=== PATIENT | female | born 1985 | race Two or more races ===

== ENCOUNTER 2016-07-11 18:18 | Emergency (ER) | payer OTHER, SELFPAY ==
[2016-07-11] MEDS ORDERED: METOCLOPRAMIDE INJ 10MG/2ML VIAL (J2765) As Ordered ONE (20:08)
[2016-07-11] MEDS ORDERED: dexameTHASONE 4 MG/ML 1ML VIAL (J1100) As Ordered ONE (20:09)
[2016-07-11] MEDS ORDERED: diphenhydrAMINE INJ 50MG/ML VIAL (J1200) As Ordered ONE (20:09)
[2016-07-11 20:20] LABS: BASO % 0.3 % (0.0-1.0); EOS # 0.3 K/mm3 (0.0-0.50); EOS % 2.4 % (0.0-3.0); LARGE UNSTAINED CELL # 0.2 K/mm3 (0.0-0.4); LARGE UNSTAINED CELL % 1.8 % (0.0-4.0); LYMPH % 29.1 % (24.0-44.0); MEAN CORPUSCULAR HEMOGLOBIN 31.2 pg (27.0-33.0); MEAN CORPUSCULAR HGB CONC 34.2 g/dl (32.0-36.5); MEAN CORPUSCULAR VOLUME 91.4 fl (80.0-96.0); MONO # 0.6 K/mm3 (0.0-0.8); MONO % 4.3 % (0.0-5.0); NEUTROPHILS # 8.5 K/mm3 (1.8-7.7); NEUTROPHILS % 62.2 % (36.0-66.0); PLATELET COUNT, AUTOMATED 248 k/mm3 (150-450); RED CELL DISTRIBUTION WIDTH 12.7 % (11.5-14.5); WHITE BLOOD COUNT 13.7 K/mm3 (4.0-10.0)
[2016-07-11 20:54] LABS: ERYTHROCYTE SEDIMENTATION RATE 5 mm/hr (0-20)
--- NOTE | 2016-07-11 21:00 | REPUSA ---
HISTORY: Rule out bleed COMPARISON: None. TECHNIQUE: Multiple thin-section contiguous helically-acquired, axially-displayed computed tomographic images of the brain were obtained from the posterior fossa continued through the supratentorial structures, with images reviewed at brain, intermediate, and bone windows. FINDINGS: No acute intracranial hemorrhage or evidence of acute transcortical ischemia. No suspicious intra or extra axial fluid collection, middling shift, or evidence of hydrocephalus. The orbits and sella demonstrate no suspicious abnormality. Visualized paranasal sinuses, mastoid air cells, and middle ear cavities are patent. Osseous structures and extra cranial soft tissues demonstrate no abnormalities. IMPRESSION: No acute intracranial abnormality. Thank you for your kind referral of this patient.
[2016-07-11 21:10] LABS: ANION GAP 7 MEQ/L (8-16); BLOOD UREA NITROGEN 8 MG/DL (7-18); CALCIUM LEVEL 8.6 MG/DL (8.5-10.1); CARBON DIOXIDE LEVEL 29 MEQ/L (21-32); CHLORIDE LEVEL 108 MEQ/L (98-107); CREATININE FOR GFR 0.57 MG/DL (0.55-1.02); GLOMERULAR FILTRATION RATE > 60.0 (>60); GLUCOSE, FASTING 87 MG/DL (70-105); SODIUM LEVEL 144 MEQ/L (136-145)
--- NOTE | 2016-07-11 22:24 | EDDOCDS ---
Physician Documentation [facility] Name: Karen Hendricks Age: 31 yrs Sex: Female : 1985 Arrival Date: 07/11/2016 Time: 18:18 Bed I8 / 16 Private MD: ILYA RUIZ Disposition: 07/11/16 21:39 Discharged to Home/Self Care. Impression: Headache. - Condition is Stable. - Discharge Instructions: General Headache Without Cause. - Medication Reconciliation, Local Pharmacy Hours form. - Follow up: ILYA RUIZ; When: 1 - 2 days; Reason: Recheck today's complaints, Continuance of care. - Problem is new. - Symptoms have improved. - Notes: PLEASE FOLLOW UP WITH YOUR DOCTOR IN 1-2 DAYS, RETURN TO THE ER IF THE SYMPTOMS WORSEN OR BECOME CONCERNING Historical: - Allergies: Penicillins; - Home Meds: 1. citalopram 25 mg oral tab 1 tab once daily (Last dose: 07/09/2016) 2. Depakote ER 250 mg Oral Tb24 1 tabs once daily 3. buspirone 10 mg Oral tab 1 tab 2 times per day 4. hydrochlorothiazide 25 mg Oral tab 1 tab once daily 5. Vitamin D-3 with Aloe 120-1,000-10 mg-unit-mg oral tab twice a day 6. Tension Headache Reliever 30-325 mg oral tab 2 tabs every 4 hours (Last dose: 07/11/2016 15:00) 7. ibuprofen 800 mg Oral tab (Last dose: 07/11/2016 15:00) - PMHx: Bipolar disorder; Depression; - PSHx: Tubal ligation; - Social history: Smoking status: Patient uses tobacco products, light tobacco smoker. No barriers to communication noted, The patient speaks fluent [place], Speaks appropriately for age. - Family history: Not pertinent. - : The pt / caregiver states he / she is not on anticoagulants. Home medication list is obtained from the patient. - Exposure Risk Screening:: None identified. 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 0 in. (152.40 cm) (R); Pain 6/10; 22:21 BP 120 / 78; Pulse 82; Resp 18; Temp 98.4(O); Pulse Ox 98% on R/A; Pain 0/10; jmb 18:20 Body Mass Index 36.13 (83.91 kg, 152.40 cm) gr2 MDM: 19:59 IV Saline Lock ordered. ck7 19:59 Dexamethasone 8 mg IV at bolus once ordered. ck7 19:59 Metoclopramide 10 mg IV at 40 mg/hr once over 15 mins ordered. ck7 19:59 diphenhydrAMINE 25 mg IVP once ordered. ck7 19:59 NS 0.9% 1000 ml IV at bolus once ordered. ck7 20:01 CBC with Diff Ordered. EDMS 20:01 MED Profile Ordered. EDMS 20:01 ESR Ordered. EDMS 20:01 CRP Ordered. EDMS 20:01 CT Head Without Contrast Ordered. EDMS 20:51 Financial registration complete. zo 20:52 [facility] Payment Agreement was scanned into [employer] and attached to record. zo 21:17 CBC with Diff Reviewed. ck7 21:17 MED Profile Reviewed. ck7 21:17 CRP Reviewed. ck7 21:17 ESR Reviewed. ck7 21:17 CT Head Without Contrast Reviewed. ck7 Administered Medications: 20:22 Drug: Dexamethasone 8 mg [dexamethasone 4 mg/mL injection solution] Route: IV; Rate: mb9 bolus; Site: left antecubital; 20:22 Drug: Metoclopramide 10 mg [metoclopramide 5 mg/mL injection solution] Route: IV; Rate: mb9 40 mg/hr; Infused Over: 15 mins; Site: left antecubital; 20:22 Drug: diphenhydrAMINE 25 mg [diphenhydramine 50 mg/mL injection solution (0.5 mL)] mb9 Route: IVP; Site: left antecubital; 20:23 Drug: NS 0.9% 1000 ml [sodium chloride 0.9 % intravenous solution] Route: IV; Rate: mb9 bolus; Site: left antecubital; Signatures: Dispatcher [employer] EDMS Ish Lundberg Hannah, RN RN hs1 Stefan Martinez RPA-C RPA-Cck7 Stalin Medina,RN RN jmb Jessica Saleh RN RN kc3 Cuong Young RN mb9 The chart was reviewed and I authenticate all verbal orders and agree with the evaluation and treatment provided.Attachments: 20:52 [facility] Payment Agreement zo MTDD
--- NOTE | 2016-07-11 22:24 | EDDOCDS ---
Nurse's Notes [facility] Name: Karen Hendricks Age: 31 yrs Sex: Female : 1985 Arrival Date: 07/11/2016 Time: 18:18 Bed I8 / 16 Private MD: ILYA RUIZ Diagnosis: Headache Presentation: 07/11 18:23 Presenting complaint: Patient states: headache for past week. Patient states went to hs1 urgent care ([facility]) on Saturday and was told to come here. Patient also stated she saw regular physician and that if pain not better to come to ER for evaluation. This patient has no additional risk factors. Adult Sepsis Screening: The patient does not have new or worsening altered mentation. Patient's respiratory rate is less than 22. Systolic blood pressure is greater than 100. Patient has a qSOFA score of 0- Negative Sepsis Screen. Suicide/Homicide risk assessment- the patient denies having any suicidal and/or homicidal ideations and does not present with any other emotional, behavioral or mental health complaints. Status: Patient is not a director of volunteer services or dependent. Transition of care: patient was not received from another setting of care. 18:23 Acuity: VERN Level 4 hs1 18:23 Method Of Arrival: Walkin/Carried/Asstd hs1 Triage Assessment: 18:27 Headache History: This headache is more severe than any previous headaches the patient hs1 has experienced. General: Appears in no apparent distress, Behavior is cooperative. Pain: Pain currently is 7 out of 10 on a pain scale. Pain began gradually Also complains of nausea, photophobia. HIV screening NA for this visit Offered previously. Neurological: Reports blurred vision when pain is worse . 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 citalopram 25 mg oral tab 1 tab once daily (Last dose: 07/09/2016) 2. Depakote ER 250 mg Oral Tb24 1 tabs once daily 3. buspirone 10 mg Oral tab 1 tab 2 times per day 4. hydrochlorothiazide 25 mg Oral tab 1 tab once daily 5. Vitamin D-3 with Aloe 120-1,000-10 mg-unit-mg oral tab twice a day 6. Tension Headache Reliever 30-325 mg oral tab 2 tabs every 4 hours (Last dose: 07/11/2016 15:00) 7. ibuprofen 800 mg Oral tab (Last dose: 07/11/2016 15:00) - PMHx: Bipolar disorder; Depression; - PSHx: Tubal ligation; - Social history: Smoking status: Patient uses tobacco products, light tobacco smoker. No barriers to communication noted, The patient speaks fluent Kyrgyz, Speaks appropriately for age. - Family history: Not pertinent. - : The pt / caregiver states he / she is not on anticoagulants. Home medication list is obtained from the patient. - Exposure Risk Screening:: None identified. Screenin:14 Screening information is obtained from the patient. Fall risk: No risks identified. kc3 Assistance ADL's: requires no assistance with activities of daily living. Abuse/DV Screen: The patient / caregiver reports he/she is: not in a situation that causes fear, pain or injury. Nutritional screening: No deficits noted. home support is adequate. 20:15 Advance Directives: Currently, there is no health care proxy. kc3 Assessment: 20:13 General: Appears in no apparent distress, uncomfortable, Behavior is appropriate for kc3 age, cooperative. Pain: Location: head. Neurological: Level of Consciousness is awake, alert, obeys commands, Oriented to person, place, time, Reports headache photophobia. Respiratory: Airway is patent Respiratory effort is even, unlabored. Derm: Skin is pink, warm & dry. 21:02 General: Appears in no apparent distress, Behavior is cooperative. Pain: Location: mb9 headache Pain currently is 4 out of 10 on a pain scale. Respiratory: Airway is patent Respiratory effort is even, unlabored. 22:21 General: Patient instructed on discharge instructions. Patient asked if there were any b questions regarding discharge, patient stated no. IV discontinued per hospital policy. Patient signed discharge instructions. Patient discharged in stable condition. . Vital Signs: 18:20 BP 126 / 81; Pulse 98; Resp 18 S; Temp 98.5(O); Pulse Ox 100% on R/A; Weight 83.91 kg gr2 (R); Height 5 ft. 0 in. (152.40 cm) (R); Pain 6/10; 22:21 BP 120 / 78; Pulse 82; Resp 18; Temp 98.4(O); Pulse Ox 98% on R/A; Pain 0/10; jmb 18:20 Body Mass Index 36.13 (83.91 kg, 152.40 cm) gr2 Vitals: 18:20 Log In Time: July 11, 2016 at 18:20. gr2 ED Course: 18:19 Patient visited by Tania Marcelo. gr2 18:19 Patient moved to Waiting gr2 18:20 ILYA RUIZ is Private Physician. gr2 18:21 Patient visited by Tania Marcelo. gr2 18:21 Patient moved to Pre RCE gr2 18:24 Triage Initiated hs1 19:08 Patient moved to Triage 1 ttb 19:38 Stefan Martinez RPA-C is PHCP. ck7 19:38 Charles Chaudhry MD is Attending Physician. ck7 19:38 Patient visited by Stefan Martinez RPA-C. ck7 20:01 Kelsey Lopez, ANTONY is Primary Nurse. kc3 20:01 Alexandrea Kirk,RN is Primary Nurse. kc3 20:01 Patient moved to I8 / 16 kc3 20:11 Patient visited by Stefan Martinez RPA-C. ck7 20:13 CRP Sent. kc3 20:13 ESR Sent. kc3 20:13 MED Profile Sent. kc3 20:13 CBC with Diff Sent. kc3 20:14 The patient / caregiver is instructed regarding the plan of care and ED course. kc3 20:14 Inserted saline lock: 20 gauge in left antecubital area and blood collected. The kc3 patient tolerated the procedure well. 20:16 Patient visited by Jessica Saleh RN. kc3 20:48 Patient visited by Stefan Martinez RPA-C. ck7 20:52 [facility] Payment Agreement was scanned into [email or web address] and attached to record. zo 21:15 CT Head Without Contrast Returned. EDMS 21:27 Patient visited by Stefan Martinez RPA-C. ck7 21:29 Primary Nurse role handed off by Kelsey Lopez, RN pc 21:39 ILYA RUIZ is Referral Physician. ck7 22:21 Discontinued lock intact, bleeding controlled, pressure dressing applied, No jmb redness/swelling at site. No procedures done that require assistance. Administered Medications: 20:22 Drug: Dexamethasone 8 mg [dexamethasone 4 mg/mL injection solution] Route: IV; Rate: mb9 bolus; Site: left antecubital; 20:22 Drug: Metoclopramide 10 mg [metoclopramide 5 mg/mL injection solution] Route: IV; Rate: mb9 40 mg/hr; Infused Over: 15 mins; Site: left antecubital; 20:22 Drug: diphenhydrAMINE 25 mg [diphenhydramine 50 mg/mL injection solution (0.5 mL)] mb9 Route: IVP; Site: left antecubital; 20:23 Drug: NS 0.9% 1000 ml [sodium chloride 0.9 % intravenous solution] Route: IV; Rate: mb9 bolus; Site: left antecubital; Order Results: Lab Order: CBC with Diff; SPEC'M 07/11/16 20:11 Test: WHITE BLOOD COUNT; Value: 13.7; Range: 4.0-10.0; Abnormal: Above high normal; Units: K/mm3; Status: F Test: RED BLOOD COUNT; Value: 4.85; Range: 4.00-5.40; Units: M/mm3; Status: F Test: HEMOGLOBIN; Value: 15.1; Range: 12.0-16.0; Units: g/dl; Status: F Test: HEMATOCRIT; Value: 44.3; Range: 36.0-47.0; Units: %; Status: F Test: MEAN CORPUSCULAR VOLUME; Value: 91.4; Range: 80.0-96.0; Units: fl; Status: F Test: MEAN CORPUSCULAR HEMOGLOBIN; Value: 31.2; Range: 27.0-33.0; Units: pg; Status: F Test: MEAN CORPUSCULAR HGB CONC; Value: 34.2; Range: 32.0-36.5; Units: g/dl; Status: F Test: RED CELL DISTRIBUTION WIDTH; Value: 12.7; Range: 11.5-14.5; Units: %; Status: F Test: PLATELET COUNT, AUTOMATED; Value: 248; Range: 150-450; Units: k/mm3; Status: F Test: NEUTROPHILS %; Value: 62.2; Range: 36.0-66.0; Units: %; Status: F Test: LYMPH %; Value: 29.1; Range: 24.0-44.0; Units: %; Status: F Test: MONO %; Value: 4.3; Range: 0.0-5.0; Units: %; Status: F Test: EOS %; Value: 2.4; Range: 0.0-3.0; Units: %; Status: F Test: BASO %; Value: 0.3; Range: 0.0-1.0; Units: %; Status: F Test: LARGE UNSTAINED CELL %; Value: 1.8; Range: 0.0-4.0; Units: %; Status: F Test: NEUTROPHILS #; Value: 8.5; Range: 1.8-7.7; Abnormal: Above high normal; Units: K/mm3; Status: F Test: LYMPH #; Value: 4.0; Range: 1.5-6.5; Units: K/mm3; Status: F Test: MONO #; Value: 0.6; Range: 0.0-0.8; Units: K/mm3; Status: F Test: EOS #; Value: 0.3; Range: 0.0-0.50; Units: K/mm3; Status: F Test: BASO #; Value: 0.0; Range: 0.0-0.2; Units: K/mm3; Status: F Test: LARGE UNSTAINED CELL #; Value: 0.2; Range: 0.0-0.4; Units: K/mm3; Status: F Lab Order: [facility]; [facility] 07/11/16 20:46 Test: GLUCOSE, FASTING; Value: 87; Range: 70-105; Units: MG/DL; Status: F Test: BLOOD UREA NITROGEN; Value: 8; Range: 7-18; Units: MG/DL; Status: F Test: CREATININE FOR GFR; Value: 0.57; Range: 0.55-1.02; Units: MG/DL; Status: F Test: GLOMERULAR FILTRATION RATE; Value: > 60.0; Range: >60; Status: F Test: SODIUM LEVEL; Value: 144; Range: 136-145; Units: MEQ/L; Status: F Test: POTASSIUM SERUM; Value: 4.0; Range: 3.5-5.1; Units: MEQ/L; Status: F Test: CHLORIDE LEVEL; Value: 108; Range: 98-107; Abnormal: Above high normal; Units: MEQ/L; Status: F Test: CARBON DIOXIDE LEVEL; Value: 29; Range: 21-32; Units: MEQ/L; Status: F Test: ANION GAP; Value: 7; Range: 8-16; Abnormal: Below low normal; Units: MEQ/L; Status: F Test: CALCIUM LEVEL; Value: 8.6; Range: 8.5-10.1; Units: MG/DL; Status: F Test Note: ; Units are mL/min/1.73 m2 Chronic Kidney Disease Staging per NKF: Stage I & II GFR >=60 Normal to Mildly Decreased Stage III GFR 30-59 Moderately Decreased Stage IV GFR 15-29 Severely Decreased Stage V GFR <15 Very Little GFR Left ESRD GFR <15 on [employer] Lab Order: ESR; SPEC'M 07/11/16 20:11 Test: ERYTHROCYTE SEDIMENTATION RATE; Value: 5; Range: 0-20; Units: mm/hr; Status: F Lab Order: CRP; SPEC'M 07/11/16 20:46 Test: C REACTIVE PROTEIN QUANTITATIV; Value: 1.01; Range: 0.00-0.30; Abnormal: Above high normal; Units: MG/DL; Status: F Radiology Order: CT Head Without Contrast Test: CT Head Without Contrast REASON FOR EXAMINATION: HEADACHE, R/O BLEED; ; HISTORY: Rule out bleed; COMPARISON: None.; TECHNIQUE:; Multiple thin-section contiguous helically-acquired, axially-displayed computed tomographic images of; the brain were obtained from the posterior fossa continued through the supratentorial; structures, with images reviewed at brain, intermediate, and bone windows.; FINDINGS:; No acute intracranial hemorrhage or evidence of acute transcortical ischemia. No suspicious intra or; extra axial fluid collection, middling shift, or evidence of hydrocephalus.; The orbits and sella demonstrate no suspicious abnormality.; Visualized paranasal sinuses, mastoid air cells, and middle ear cavities are patent.; Osseous structures and extra cranial soft tissues demonstrate no abnormalities.; IMPRESSION:; No acute intracranial abnormality.; Thank you for your kind referral of this patient.; ; Outcome: 21:39 Discharge ordered by Provider. ck7 22:21 Discharge Assessment: Patient awake, alert and oriented x 3. No cognitive and/or jmb functional deficits noted. Patient verbalized understanding of disposition instructions. Patient awake and alert. obeys commands, Oriented to person, place and time. Patient verbalized understanding of disposition instructions. Patient has no functional deficits. patient administered narcotics - no. The following High Risk Discharge criteria are identified: None. Discharged to home ambulatory. Condition: stable Condition: improved. Discharge instructions given to patient, Instructed on discharge instructions, follow up and referral plans. Demonstrated understanding of instructions, Pt was receptive of discharge instructions/ teaching. No special radiology studies were completed. Property sent home with patient. 22:24 Patient left the ED. jmb Signatures: Dispatcher [employer] EDMS Pablito Luna MD MD pc Olin, Zoeann zo Sherrill, Hannah, RN RN hs1 Stefan Martinez, RPA-C RPA-Cck7 Sonya Mcconnell, RN RN ttb Tania Marcelo gr2 Stalin Medina,RN RN heribertob Cuong Young,RN RN mb9 Jessica Saleh,RN RN kc3 ALEX
--- NOTE | 2016-07-13 23:25 | EDDOCDS ---
Physician Documentation [facility] Name: Karen Hendricks Age: 31 yrs Sex: Female : 1985 Arrival Date: 07/11/2016 Time: 18:18 Bed I8 / 16 Private MD: ILYA RUIZ Disposition: 07/11/16 21:39 Discharged to Home/Self Care. Impression: Headache. - Condition is Stable. - Discharge Instructions: General Headache Without Cause. - Medication Reconciliation, Local Pharmacy Hours form. - Follow up: ILYA RUIZ; When: 1 - 2 days; Reason: Recheck today's complaints, Continuance of care. - Problem is new. - Symptoms have improved. - Notes: PLEASE FOLLOW UP WITH YOUR DOCTOR IN 1-2 DAYS, RETURN TO THE ER IF THE SYMPTOMS WORSEN OR BECOME CONCERNING Historical: - Allergies: Penicillins; - Home Meds: 1. citalopram 25 mg oral tab 1 tab once daily (Last dose: 07/09/2016) 2. Depakote ER 250 mg Oral Tb24 1 tabs once daily 3. buspirone 10 mg Oral tab 1 tab 2 times per day 4. hydrochlorothiazide 25 mg Oral tab 1 tab once daily 5. Vitamin D-3 with Aloe 120-1,000-10 mg-unit-mg oral tab twice a day 6. Tension Headache Reliever 30-325 mg oral tab 2 tabs every 4 hours (Last dose: 07/11/2016 15:00) 7. ibuprofen 800 mg Oral tab (Last dose: 07/11/2016 15:00) - PMHx: Bipolar disorder; Depression; - PSHx: Tubal ligation; - Social history: Smoking status: Patient uses tobacco products, light tobacco smoker. No barriers to communication noted, The patient speaks fluent Kazakh, Speaks appropriately for age. - Family history: Not pertinent. - : The pt / caregiver states he / she is not on anticoagulants. Home medication list is obtained from the patient. - Exposure Risk Screening:: None identified. 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 0 in. (152.40 cm) (R); Pain 6/10; 22:21 BP 120 / 78; Pulse 82; Resp 18; Temp 98.4(O); Pulse Ox 98% on R/A; Pain 0/10; jmb 18:20 Body Mass Index 36.13 (83.91 kg, 152.40 cm) gr2 MDM: 19:59 IV Saline Lock ordered. ck7 19:59 Dexamethasone 8 mg IV at bolus once ordered. ck7 19:59 Metoclopramide 10 mg IV at 40 mg/hr once over 15 mins ordered. ck7 19:59 diphenhydrAMINE 25 mg IVP once ordered. ck7 19:59 NS 0.9% 1000 ml IV at bolus once ordered. ck7 20:01 CBC with Diff Ordered. EDMS 20:01 MED Profile Ordered. EDMS 20:01 ESR Ordered. EDMS 20:01 CRP Ordered. EDMS 20:01 CT Head Without Contrast Ordered. EDMS 20:51 Financial registration complete. zo 20:52 [facility] [place] Agreement was scanned into [employer] and attached to record. zo 21:17 CBC with Diff Reviewed. ck7 21:17 MED Profile Reviewed. ck7 21:17 CRP Reviewed. ck7 21:17 ESR Reviewed. ck7 21:17 CT Head Without Contrast Reviewed. ck7 07/12 10:11 T-Sheet-- Draft Copy was scanned into [employer] and attached to record. gb Administered Medications: 07/11 20:22 Drug: Dexamethasone 8 mg [dexamethasone 4 mg/mL injection solution] Route: IV; Rate: mb9 bolus; Site: left antecubital; 20:22 Drug: Metoclopramide 10 mg [metoclopramide 5 mg/mL injection solution] Route: IV; Rate: mb9 40 mg/hr; Infused Over: 15 mins; Site: left antecubital; 20:22 Drug: diphenhydrAMINE 25 mg [diphenhydramine 50 mg/mL injection solution (0.5 mL)] mb9 Route: IVP; Site: left antecubital; 20:23 Drug: NS 0.9% 1000 ml [sodium chloride 0.9 % intravenous solution] Route: IV; Rate: mb9 bolus; Site: left antecubital; Signatures: Dispatcher [employer] EDMS Dia Garber Reg Reg gb Ish Lunbderg Hannah, RN RN hs1 Stefan Martinez, RPA-C RPA-Cck7 Stalin Medina RN RN jmb Jessica Saleh RN RN kc3 Cuong Young RN mb9 The chart was reviewed and I authenticate all verbal orders and agree with the evaluation and treatment provided.Attachments: 20:52 [facility] Payment Agreement zo 07/12 10:11 T-Sheet-- Draft Copy gb Chart Complete MTDD
--- NOTE | 2016-07-13 23:25 | EDDOCDS ---
Nurse's Notes [facility] Name: Karen Hendricks Age: 31 yrs Sex: Female : 1985 Arrival Date: 07/11/2016 Time: 18:18 Bed I8 / 16 Private MD: ILYA RUIZ Diagnosis: Headache Presentation: 07/11 18:23 Presenting complaint: Patient states: headache for past week. Patient states went to hs1 urgent care ([facility]) on Saturday and was told to come here. Patient also stated she saw regular physician and that if pain not better to come to ER for evaluation. This patient has no additional risk factors. Adult Sepsis Screening: The patient does not have new or worsening altered mentation. Patient's respiratory rate is less than 22. Systolic blood pressure is greater than 100. Patient has a qSOFA score of 0- Negative Sepsis Screen. Suicide/Homicide risk assessment- the patient denies having any suicidal and/or homicidal ideations and does not present with any other emotional, behavioral or mental health complaints. Status: Patient is not a guest service agent or dependent. Transition of care: patient was not received from another setting of care. 18:23 Acuity: VERN Level 4 hs1 18:23 Method Of Arrival: Walkin/Carried/Asstd hs1 Triage Assessment: 18:27 Headache History: This headache is more severe than any previous headaches the patient hs1 has experienced. General: Appears in no apparent distress, Behavior is cooperative. Pain: Pain currently is 7 out of 10 on a pain scale. Pain began gradually Also complains of nausea, photophobia. HIV screening NA for this visit Offered previously. Neurological: Reports blurred vision when pain is worse . 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 citalopram 25 mg oral tab 1 tab once daily (Last dose: 07/09/2016) 2. Depakote ER 250 mg Oral Tb24 1 tabs once daily 3. buspirone 10 mg Oral tab 1 tab 2 times per day 4. hydrochlorothiazide 25 mg Oral tab 1 tab once daily 5. Vitamin D-3 with Aloe 120-1,000-10 mg-unit-mg oral tab twice a day 6. Tension Headache Reliever 30-325 mg oral tab 2 tabs every 4 hours (Last dose: 07/11/2016 15:00) 7. ibuprofen 800 mg Oral tab (Last dose: 07/11/2016 15:00) - PMHx: Bipolar disorder; Depression; - PSHx: Tubal ligation; - Social history: Smoking status: Patient uses tobacco products, light tobacco smoker. No barriers to communication noted, The patient speaks fluent Mohawk, Speaks appropriately for age. - Family history: Not pertinent. - : The pt / caregiver states he / she is not on anticoagulants. Home medication list is obtained from the patient. - Exposure Risk Screening:: None identified. Screenin:14 Screening information is obtained from the patient. Fall risk: No risks identified. kc3 Assistance ADL's: requires no assistance with activities of daily living. Abuse/DV Screen: The patient / caregiver reports he/she is: not in a situation that causes fear, pain or injury. Nutritional screening: No deficits noted. home support is adequate. 20:15 Advance Directives: Currently, there is no health care proxy. kc3 Assessment: 20:13 General: Appears in no apparent distress, uncomfortable, Behavior is appropriate for kc3 age, cooperative. Pain: Location: head. Neurological: Level of Consciousness is awake, alert, obeys commands, Oriented to person, place, time, Reports headache photophobia. Respiratory: Airway is patent Respiratory effort is even, unlabored. Derm: Skin is pink, warm & dry. 21:02 General: Appears in no apparent distress, Behavior is cooperative. Pain: Location: mb9 headache Pain currently is 4 out of 10 on a pain scale. Respiratory: Airway is patent Respiratory effort is even, unlabored. 22:21 General: Patient instructed on discharge instructions. Patient asked if there were any b questions regarding discharge, patient stated no. IV discontinued per hospital policy. Patient signed discharge instructions. Patient discharged in stable condition. . Vital Signs: 18:20 BP 126 / 81; Pulse 98; Resp 18 S; Temp 98.5(O); Pulse Ox 100% on R/A; Weight 83.91 kg gr2 (R); Height 5 ft. 0 in. (152.40 cm) (R); Pain 6/10; 22:21 BP 120 / 78; Pulse 82; Resp 18; Temp 98.4(O); Pulse Ox 98% on R/A; Pain 0/10; jmb 18:20 Body Mass Index 36.13 (83.91 kg, 152.40 cm) gr2 Vitals: 18:20 Log In Time: July 11, 2016 at 18:20. gr2 ED Course: 18:19 Patient visited by Tania Marcelo. gr2 18:19 Patient moved to Waiting gr2 18:20 ILYA RUIZ is Private Physician. gr2 18:21 Patient visited by Tania Marcelo. gr2 18:21 Patient moved to Pre RCE gr2 18:24 Triage Initiated hs1 19:08 Patient moved to Triage 1 ttb 19:38 Stefan Martinez RPA-C is PHCP. ck7 19:38 Charles Chaudhry MD is Attending Physician. ck7 19:38 Patient visited by Stefan Martinez RPA-C. ck7 20:01 Kelsey Lopez, RN is Primary Nurse. kc3 20:01 Alexandrea Kirk,RN is Primary Nurse. kc3 20:01 Patient moved to I8 / 16 kc3 20:11 Patient visited by Stefan Martinez RPA-C. ck7 20:13 CRP Sent. kc3 20:13 ESR Sent. kc3 20:13 MED Profile Sent. kc3 20:13 CBC with Diff Sent. kc3 20:14 The patient / caregiver is instructed regarding the plan of care and ED course. kc3 20:14 Inserted saline lock: 20 gauge in left antecubital area and blood collected. The kc3 patient tolerated the procedure well. 20:16 Patient visited by Jessica Saleh,ANTONY. kc3 20:48 Patient visited by Stefan Martinez RPA-C. ck7 20:52 [facility] Payment Agreement was scanned into LUMOback and attached to record. zo 21:15 CT Head Without Contrast Returned. EDMS 21:27 Patient visited by Stefan Martinez RPA-C. ck7 21:29 Primary Nurse role handed off by Kelsey Lopez, RN pc 21:39 ILYA RUIZ is Referral Physician. ck7 22:21 Discontinued lock intact, bleeding controlled, pressure dressing applied, No jmb redness/swelling at site. No procedures done that require assistance. 07/12 10:11 T-Sheet-- Draft Copy was scanned into LUMOback and attached to record. gb Administered Medications: 07/11 20:22 Drug: Dexamethasone 8 mg [dexamethasone 4 mg/mL injection solution] Route: IV; Rate: mb9 bolus; Site: left antecubital; 20:22 Drug: Metoclopramide 10 mg [metoclopramide 5 mg/mL injection solution] Route: IV; Rate: mb9 40 mg/hr; Infused Over: 15 mins; Site: left antecubital; 20:22 Drug: diphenhydrAMINE 25 mg [diphenhydramine 50 mg/mL injection solution (0.5 mL)] mb9 Route: IVP; Site: left antecubital; 20:23 Drug: NS 0.9% 1000 ml [sodium chloride 0.9 % intravenous solution] Route: IV; Rate: mb9 bolus; Site: left antecubital; Order Results: Lab Order: CBC with Diff; SPEC'M 07/11/16 20:11 Test: WHITE BLOOD COUNT; Value: 13.7; Range: 4.0-10.0; Abnormal: Above high normal; Units: K/mm3; Status: F Test: RED BLOOD COUNT; Value: 4.85; Range: 4.00-5.40; Units: M/mm3; Status: F Test: HEMOGLOBIN; Value: 15.1; Range: 12.0-16.0; Units: g/dl; Status: F Test: HEMATOCRIT; Value: 44.3; Range: 36.0-47.0; Units: %; Status: F Test: MEAN CORPUSCULAR VOLUME; Value: 91.4; Range: 80.0-96.0; Units: fl; Status: F Test: MEAN CORPUSCULAR HEMOGLOBIN; Value: 31.2; Range: 27.0-33.0; Units: pg; Status: F Test: MEAN CORPUSCULAR HGB CONC; Value: 34.2; Range: 32.0-36.5; Units: g/dl; Status: F Test: RED CELL DISTRIBUTION WIDTH; Value: 12.7; Range: 11.5-14.5; Units: %; Status: F Test: PLATELET COUNT, AUTOMATED; Value: 248; Range: 150-450; Units: k/mm3; Status: F Test: NEUTROPHILS %; Value: 62.2; Range: 36.0-66.0; Units: %; Status: F Test: LYMPH %; Value: 29.1; Range: 24.0-44.0; Units: %; Status: F Test: MONO %; Value: 4.3; Range: 0.0-5.0; Units: %; Status: F Test: EOS %; Value: 2.4; Range: 0.0-3.0; Units: %; Status: F Test: BASO %; Value: 0.3; Range: 0.0-1.0; Units: %; Status: F Test: LARGE UNSTAINED CELL %; Value: 1.8; Range: 0.0-4.0; Units: %; Status: F Test: NEUTROPHILS #; Value: 8.5; Range: 1.8-7.7; Abnormal: Above high normal; Units: K/mm3; Status: F Test: LYMPH #; Value: 4.0; Range: 1.5-6.5; Units: K/mm3; Status: F Test: MONO #; Value: 0.6; Range: 0.0-0.8; Units: K/mm3; Status: F Test: EOS #; Value: 0.3; Range: 0.0-0.50; Units: K/mm3; Status: F Test: BASO #; Value: 0.0; Range: 0.0-0.2; Units: K/mm3; Status: F Test: LARGE UNSTAINED CELL #; Value: 0.2; Range: 0.0-0.4; Units: K/mm3; Status: F Lab Order: MED Profile; [facility]'M 07/11/16 20:46 Test: GLUCOSE, FASTING; Value: 87; Range: 70-105; Units: MG/DL; Status: F Test: BLOOD UREA NITROGEN; Value: 8; Range: 7-18; Units: MG/DL; Status: F Test: CREATININE FOR GFR; Value: 0.57; Range: 0.55-1.02; Units: MG/DL; Status: F Test: GLOMERULAR FILTRATION RATE; Value: > 60.0; Range: >60; Status: F Test: SODIUM LEVEL; Value: 144; Range: 136-145; Units: MEQ/L; Status: F Test: POTASSIUM SERUM; Value: 4.0; Range: 3.5-5.1; Units: MEQ/L; Status: F Test: CHLORIDE LEVEL; Value: 108; Range: 98-107; Abnormal: Above high normal; Units: MEQ/L; Status: F Test: CARBON DIOXIDE LEVEL; Value: 29; Range: 21-32; Units: MEQ/L; Status: F Test: ANION GAP; Value: 7; Range: 8-16; Abnormal: Below low normal; Units: MEQ/L; Status: F Test: CALCIUM LEVEL; Value: 8.6; Range: 8.5-10.1; Units: MG/DL; Status: F Test Note: ; Units are mL/min/1.73 m2 Chronic Kidney Disease Staging per NKF: Stage I & II GFR >=60 Normal to Mildly Decreased Stage III GFR 30-59 Moderately Decreased Stage IV GFR 15-29 Severely Decreased Stage V GFR <15 Very Little GFR Left ESRD GFR <15 on SAP 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 Lab Order: ESR; SPEC'M 07/11/16 20:11 Test: ERYTHROCYTE SEDIMENTATION RATE; Value: 5; Range: 0-20; Units: mm/hr; Status: F Lab Order: CRP; SPEC'M 07/11/16 20:46 Test: C REACTIVE PROTEIN QUANTITATIV; Value: 1.01; Range: 0.00-0.30; Abnormal: Above high normal; Units: MG/DL; Status: F Radiology Order: CT Head Without Contrast Test: CT Head Without Contrast REASON FOR EXAMINATION: HEADACHE, R/O BLEED; ; HISTORY: Rule out bleed; COMPARISON: None.; TECHNIQUE:; Multiple thin-section contiguous helically-acquired, axially-displayed computed tomographic images of; the brain were obtained from the posterior fossa continued through the supratentorial; structures, with images reviewed at brain, intermediate, and bone windows.; FINDINGS:; No acute intracranial hemorrhage or evidence of acute transcortical ischemia. No suspicious intra or; extra axial fluid collection, middling shift, or evidence of hydrocephalus.; The orbits and sella demonstrate no suspicious abnormality.; Visualized paranasal sinuses, mastoid air cells, and middle ear cavities are patent.; Osseous structures and extra cranial soft tissues demonstrate no abnormalities.; IMPRESSION:; No acute intracranial abnormality.; Thank you for your kind referral of this patient.; ; Outcome: 21:39 Discharge ordered by Provider. ck7 22:21 Discharge Assessment: Patient awake, alert and oriented x 3. No cognitive and/or jmb functional deficits noted. Patient verbalized understanding of disposition instructions. Patient awake and alert. obeys commands, Oriented to person, place and time. Patient verbalized understanding of disposition instructions. Patient has no functional deficits. patient administered narcotics - no. The following High Risk Discharge criteria are identified: None. Discharged to home ambulatory. Condition: stable Condition: improved. Discharge instructions given to patient, Instructed on discharge instructions, follow up and referral plans. Demonstrated understanding of instructions, Pt was receptive of discharge instructions/ teaching. No special radiology studies were completed. Property sent home with patient. 22:24 Patient left the ED. nuris Signatures: Dispatcher Med[employer] EDMS Pablito Luna MD MD pc Dia Garber, Reg Reg Ish Christensen Hannah, RN RN hs1 Stefan Martinez, RPA-C RPA-Cck7 Sonya Mcconnell, RN RN ttb Tania Marcelo gr2 Stalin MedinaRN RN heribertob Cuong Young,RN RN mb9 Jessica Saleh,RN RN kc3 Chart Complete MTDD
--- NOTE | 2016-07-13 23:25 | EDDOCDS ---
Physician Documentation [facility] Name: Karen Hendricks Age: 31 yrs Sex: Female : 1985 Arrival Date: 07/11/2016 Time: 18:18 Bed I8 / 16 Private MD: ILYA RUIZ Disposition: 07/11/16 21:39 Discharged to Home/Self Care. Impression: Headache. - Condition is Stable. - Discharge Instructions: General Headache Without Cause. - Medication Reconciliation, Local Pharmacy Hours form. - Follow up: ILYA RUIZ; When: 1 - 2 days; Reason: Recheck today's complaints, Continuance of care. - Problem is new. - Symptoms have improved. - Notes: PLEASE FOLLOW UP WITH YOUR DOCTOR IN 1-2 DAYS, RETURN TO THE ER IF THE SYMPTOMS WORSEN OR BECOME CONCERNING Historical: - Allergies: Penicillins; - Home Meds: 1. citalopram 25 mg oral tab 1 tab once daily (Last dose: 07/09/2016) 2. Depakote ER 250 mg Oral Tb24 1 tabs once daily 3. buspirone 10 mg Oral tab 1 tab 2 times per day 4. hydrochlorothiazide 25 mg Oral tab 1 tab once daily 5. Vitamin D-3 with Aloe 120-1,000-10 mg-unit-mg oral tab twice a day 6. Tension Headache Reliever 30-325 mg oral tab 2 tabs every 4 hours (Last dose: 07/11/2016 15:00) 7. ibuprofen 800 mg Oral tab (Last dose: 07/11/2016 15:00) - PMHx: Bipolar disorder; Depression; - PSHx: Tubal ligation; - Social history: Smoking status: Patient uses tobacco products, light tobacco smoker. No barriers to communication noted, The patient speaks fluent Romanian, Speaks appropriately for age. - Family history: Not pertinent. - : The pt / caregiver states he / she is not on anticoagulants. Home medication list is obtained from the patient. - Exposure Risk Screening:: None identified. 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 0 in. (152.40 cm) (R); Pain 6/10; 22:21 BP 120 / 78; Pulse 82; Resp 18; Temp 98.4(O); Pulse Ox 98% on R/A; Pain 0/10; jmb 18:20 Body Mass Index 36.13 (83.91 kg, 152.40 cm) gr2 MDM: 19:59 IV Saline Lock ordered. ck7 19:59 Dexamethasone 8 mg IV at bolus once ordered. ck7 19:59 Metoclopramide 10 mg IV at 40 mg/hr once over 15 mins ordered. ck7 19:59 diphenhydrAMINE 25 mg IVP once ordered. ck7 19:59 NS 0.9% 1000 ml IV at bolus once ordered. ck7 20:01 CBC with Diff Ordered. EDMS 20:01 MED Profile Ordered. EDMS 20:01 ESR Ordered. EDMS 20:01 CRP Ordered. EDMS 20:01 CT Head Without Contrast Ordered. EDMS 20:51 Financial registration complete. zo 20:52 [facility] Payment Agreement was scanned into [employer] and attached to record. zo 21:17 CBC with Diff Reviewed. ck7 21:17 MED Profile Reviewed. ck7 21:17 CRP Reviewed. ck7 21:17 ESR Reviewed. ck7 21:17 CT Head Without Contrast Reviewed. ck7 07/12 10:11 T-Sheet-- Draft Copy was scanned into [employer] and attached to record. gb Administered Medications: 07/11 20:22 Drug: Dexamethasone 8 mg [dexamethasone 4 mg/mL injection solution] Route: IV; Rate: mb9 bolus; Site: left antecubital; 20:22 Drug: Metoclopramide 10 mg [metoclopramide 5 mg/mL injection solution] Route: IV; Rate: mb9 40 mg/hr; Infused Over: 15 mins; Site: left antecubital; 20:22 Drug: diphenhydrAMINE 25 mg [diphenhydramine 50 mg/mL injection solution (0.5 mL)] mb9 Route: IVP; Site: left antecubital; 20:23 Drug: NS 0.9% 1000 ml [sodium chloride 0.9 % intravenous solution] Route: IV; Rate: mb9 bolus; Site: left antecubital; Signatures: Dispatcher MedHost EDMS Dia Garber Reg Reg gb Ish Lundberg Hannah, RN RN hs1 Stefan Martinez, RPA-C RPA-Cck7 Stalin Medina RN RN jmb Jessica Saleh RN RN kc3 Cuong Young RN mb9 The chart was reviewed and I authenticate all verbal orders and agree with the evaluation and treatment provided.Attachments: 20:52 [facility] Payment Agreement zo 07/12 10:11 T-Sheet-- Draft Copy gb Chart Complete MTDD
== END 2016-07-11 22:24 | disposition home or self-care (01) ==
LOC: M ED 18:18
DX: R51 Headache (principal); F31.9 Bipolar disorder, unspecified; Z79.899 Other long term (current) drug therapy; Z88.0 Allergy status to penicillin
CPT/HCPCS: 36415; 70450; 80048; 85025; 85652; 86140; 96374; 96375; 99284; J1100; J1200; J2765

== ENCOUNTER 2016-07-19 09:54 | Emergency (ER) | payer OTHER, SELFPAY ==
[2016-07-19] MEDS ORDERED: ONDANSETRON 4MG/2ML VIAL (J2405) As Ordered ONE (10:36)
[2016-07-19] MEDS ORDERED: MORPHINE 4 MG/ML 1ML SYRINGE As Ordered ONE (10:36)
[2016-07-19 10:39] LABS: BASO % 0.3 % (0.0-1.0); EOS # 0.2 K/mm3 (0.0-0.50); EOS % 2.6 % (0.0-3.0); LARGE UNSTAINED CELL # 0.1 K/mm3 (0.0-0.4); LARGE UNSTAINED CELL % 1.3 % (0.0-4.0); LYMPH # 1.3 K/mm3 (1.5-6.5); LYMPH % 12.9 % (24.0-44.0); MEAN CORPUSCULAR HEMOGLOBIN 30.8 pg (27.0-33.0); MEAN CORPUSCULAR HGB CONC 34.9 g/dl (32.0-36.5); MEAN CORPUSCULAR VOLUME 88.5 fl (80.0-96.0); MONO # 0.5 K/mm3 (0.0-0.8); MONO % 4.7 % (0.0-5.0); NEUTROPHILS # 7.7 K/mm3 (1.8-7.7); NEUTROPHILS % 78.2 % (36.0-66.0); PLATELET COUNT, AUTOMATED 231 k/mm3 (150-450); RED CELL DISTRIBUTION WIDTH 12.9 % (11.5-14.5); WHITE BLOOD COUNT 9.8 K/mm3 (4.0-10.0)
[2016-07-19 11:04] LABS: ANION GAP 8 MEQ/L (8-16); BLOOD UREA NITROGEN 10 MG/DL (7-18); CALCIUM LEVEL 8.7 MG/DL (8.5-10.1); CARBON DIOXIDE LEVEL 27 MEQ/L (21-32); CHLORIDE LEVEL 104 MEQ/L (98-107); CREATININE FOR GFR 0.68 MG/DL (0.55-1.02); GLOMERULAR FILTRATION RATE > 60.0 (>60); GLUCOSE, FASTING 91 MG/DL (70-105); POTASSIUM SERUM 3.2 MEQ/L (3.5-5.1); SODIUM LEVEL 139 MEQ/L (136-145)
--- NOTE | 2016-07-19 11:30 | REP ---
CT ABDOMEN AND PELVIS WITHOUT IV CONTRAST: CT abdomen and pelvis performed. No oral or IV contrast was administered. Sagittal and coronal reconstructions images are performed. Visualized lung bases are clear. Liver, spleen, adrenals and pancreas are unremarkable. Subcentimeter calcification in the upper pole of the right kidney is seen as well as a tiny subcentimeter calcification in the mid right renal collecting system. No hydroureteronephrosis is seen. No ureteral or bladder calculus is seen. There is no abdominal aortic aneurysm. There is no adenopathy. There is no free air or free fluid. There is no bowel thickening. The appendix is normal. There is no pelvic mass. The urinary bladder is not optimally distended and not optimally evaluated. There are no anterior abdominal wall defects. IMPRESSION: Two intrarenal subcentimeter calculi right kidney. No ureteral calculi bilaterally. No hydroureteronephrosis. No other acute abnormality detected. Signed by Hang Fuller MD 07/19/2016 01:22 P
--- NOTE | 2016-07-19 11:59 | EDDOCDS ---
Physician Documentation [facility] Name: Karen Hendricks Age: 31 yrs Sex: Female : 1985 Arrival Date: 07/19/2016 Time: 09:54 Bed I1 / M1 Private MD: LIYA RUIZ Disposition: 07/19/16 11:50 Discharged to Home/Self Care. Impression: Low back pain - left flank. - Condition is Stable. - Discharge Instructions: Back Pain, Adult. - Prescriptions for Robaxin 500 mg Oral Tablet - take 1 tablet by ORAL route every 6 hours As needed; 20 tablet. Ultram 50 mg Oral Tablet - take 1 tablet by ORAL route every 6 hours As needed MDD: 4 tabs; 20 tablet. - Medication Reconciliation, Local Pharmacy Hours form. - Follow up: ILYA RUIZ; When: As previously arranged; Reason: Recheck today's complaints, Continuance of care. - Problem is new. - Symptoms have improved. Historical: - Allergies: PENICILLINS; - Home Meds: 1. buspirone 10 mg Oral tab 1 tab 2 times per day 2. citalopram 25 mg Oral tab 1 tab once daily 3. Depakote ER 250 mg Oral Tb24 1 tabs once daily 4. hydrochlorothiazide 25 mg Oral tab 1 tab once daily 5. ibuprofen 800 mg Oral tab (Last dose: 07/19/2016 08:30) 6. Tension Headache Reliever 30-325 mg oral tab 2 tabs every 4 hours 7. Vitamin D-3 with Aloe 120-1,000-10 mg-unit-mg oral tab twice a day 8. Tylenol Oral 2 tabs alfie 8 hours (Last dose: 07/19/2016 07:00) - PMHx: Bipolar disorder; Depression; Kidney stones; - PSHx: Tubal ligation; - Social history: Smoking status: Patient states was never smoker of tobacco. No barriers to communication noted, The patient speaks fluent Maltese, Speaks appropriately for age. - Family history: Not pertinent. - : The pt / caregiver states he / she is not on anticoagulants. Home medication list is obtained from the patient. - Exposure Risk Screening:: None identified. 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 0 in. (152.40 cm) (R); Pain 9/10; 11:33 Pain 4/10; kr3 11:55 BP 118 / 76; Pulse 84; Resp 16; Temp 97.5; Pulse Ox 100% on R/A; kr3 09:56 Body Mass Index 36.33 (84.37 kg, 152.40 cm) ct3 MDM: 10:13 IV Saline Lock ordered. ar2 10:13 UCG by Nursing ordered. ar2 10:13 NS 0.9% 1000 ml IV at bolus once ordered. ar2 10:13 Ondansetron 4 mg IVP once ordered. ar2 10:13 morphine 4 mg IVP once ordered. ar2 10:14 CBC with Diff Ordered. EDMS 10:14 MED Profile Ordered. EDMS 10:14 UA Ordered. EDMS 10:14 Urine Culture Ordered. EDMS 10:45 CT ABD & PELVIS: No Contrast Ordered. EDMS 10:48 Financial registration complete. mm15 10:49 [facility] Payment Agreement was scanned into [employer] and attached to record. mm15 11:16 CBC with Diff Reviewed. ar2 11:16 MED Profile Reviewed. ar2 11:16 UA Reviewed. ar2 Point of Care Testing: Urine : 10:43 hCG Reading: Negative; Control Reading: Positive; jb5 Ranges: Administered Medications: 10:44 Drug: NS 0.9% 1000 ml Route: IV; Rate: bolus; Site: right antecubital; mk4 11:55 Follow up: BP 118 / 76; Pulse 84 bpm; Resp 16 bpm; Temp 97.5; Pulse Ox 100% RA; IV kr3 Status: Infusion discontinued; IV Intake: 700ml 10:44 Drug: Ondansetron 4 mg Route: IVP; Site: right antecubital; mk4 10:44 Drug: morphine 4 mg [morphine 4 mg/mL intravenous cartridge (1 mL)] Route: IVP; Site: mk4 right antecubital; 11:33 Follow up: Pain 4/10 Adult kr3 Signatures: Dispatcher MedHost EDMS Cathy Hansen RN RN kr3 Kelsey Lind RN RN Earle Colin PA-C PAVinay ar2 Usha Bhakta mm15 Iris Dwyer RN RN mk4 The chart was reviewed and I authenticate all verbal orders and agree with the evaluation and treatment provided.Attachments: 10:49 [facility] Payment Agreement mm15 MTDD
--- NOTE | 2016-07-19 11:59 | EDDOCDS ---
Nurse's Notes [facility] Name: Karen Hendricks Age: 31 yrs Sex: Female : 1985 Arrival Date: 07/19/2016 Time: 09:54 Bed I1 / M1 Private MD: ILYA RUIZ Diagnosis: Low back pain-left flank Presentation: 07/19 09:59 Presenting complaint: Patient states: Left sided flank pain. History of kidney stones. jo3 Passes them frequently. Out of [place]. Acute neurological deficits are not present. Mechanism of Injury: No Mechanism of Injury. Adult Sepsis Screening: The patient does not have new or worsening altered mentation. Patient's respiratory rate is less than 22. Systolic blood pressure is greater than 100. Patient has a qSOFA score of 0- Negative Sepsis Screen. Suicide/Homicide risk assessment- the patient denies having any suicidal and/or homicidal ideations and does not present with any other emotional, behavioral or mental health complaints. Status: Patient is not a claims service representative or dependent. Transition of care: patient was not received from another setting of care. 09:59 Acuity: VERN Level 3 jo3 09:59 Method Of Arrival: Walkin/Carried/Asstd jo3 Triage Assessment: 10:03 General: Appears uncomfortable, Behavior is appropriate for age, cooperative. Pain: jo3 Pain currently is 9 out of 10 on a pain scale. HIV screening NA for this visit Offered previously. Neurological: Level of Consciousness is awake, alert, Oriented to person, place, time. Respiratory: Airway is patent Respiratory effort is even, unlabored. Derm: Skin is pink, warm & dry. RN NICU: 10:03 LMP 07/02/2016 jo3 Historical: - Allergies: PENICILLINS; - Home Meds: 1. buspirone 10 mg Oral tab 1 tab 2 times per day 2. citalopram 25 mg Oral tab 1 tab once daily 3. Depakote ER 250 mg Oral Tb24 1 tabs once daily 4. hydrochlorothiazide 25 mg Oral tab 1 tab once daily 5. ibuprofen 800 mg Oral tab (Last dose: 07/19/2016 08:30) 6. Tension Headache Reliever 30-325 mg oral tab 2 tabs every 4 hours 7. Vitamin D-3 with Aloe 120-1,000-10 mg-unit-mg oral tab twice a day 8. Tylenol Oral 2 tabs alfie 8 hours (Last dose: 07/19/2016 07:00) - PMHx: Bipolar disorder; Depression; Kidney stones; - PSHx: Tubal ligation; - Social history: Smoking status: Patient states was never smoker of tobacco. No barriers to communication noted, The patient speaks fluent Gambian, Speaks appropriately for age. - Family history: Not pertinent. - : The pt / caregiver states he / she is not on anticoagulants. Home medication list is obtained from the patient. - Exposure Risk Screening:: None identified. Screenin:45 Screening information is obtained from the patient. Fall risk: No risks identified. mk4 Assistance ADL's: requires no assistance with activities of daily living. Abuse/DV Screen: The patient / caregiver reports he/she is: not in a situation that causes fear, pain or injury. Nutritional screening: No deficits noted. Advance Directives: Currently, there is no health care proxy. There is no active DNR order. There is no living will. There is no Power of Director [employer]. Advance directive information has not previously been placed in an [facility] medical record. Further advance directive information is declined. home support is adequate. Assessment: 10:45 General: Appears uncomfortable. Pain: Location: left lower quadrant. Neurological: mk4 Level of Consciousness is awake, alert. Respiratory: Airway is patent Respiratory effort is even, unlabored, Respiratory pattern is regular. Derm: Skin is intact, is healthy with good turgor, Skin is pink, warm & dry. Musculoskeletal: No deficits noted. 11:34 Reassessment: reports initially had some pain relief but now pain is 4/10 and kr3 increasing, provider notified. Vital Signs: 09:56 BP 126 / 82; Pulse 93; Resp 18; Temp 98.8(O); Pulse Ox 97% ; Weight 84.37 kg (R); ct3 Height 5 ft. 0 in. (152.40 cm) (R); Pain 9/10; 11:33 Pain 4/10; kr3 11:55 BP 118 / 76; Pulse 84; Resp 16; Temp 97.5; Pulse Ox 100% on R/A; kr3 09:56 Body Mass Index 36.33 (84.37 kg, 152.40 cm) ct3 Vitals: 09:56 Log In Time: July 19, 2016 at 09:53. ct3 ED Course: 09:55 Patient visited by Jaki Heck, DOROTEO. ct3 09:55 ILYA RUIZ is Private Physician. ct3 09:55 Patient moved to Waiting ct3 09:57 Patient moved to Pre RCE ct3 10:01 Triage Initiated jo3 10:04 Patient visited by Kelsey Lind RN. jo3 10:04 Patient moved to Triage 2 jo3 10:07 Earle Cornelius [facility]-C [facility]. ar2 10:07 Pablito Luna MD is Attending Physician. ar2 10:07 Patient visited by Earle Cornelius PA-C. ar2 10:21 Patient moved to I1 / M1 ck1 10:21 Urine Culture Sent. ck1 10:21 UA Sent. ck1 10:34 MED Profile Sent. mk4 10:34 CBC with Diff Sent. mk4 10:43 Patient visited by Iris Dwyer RN. mk4 10:43 Patient visited by Ayde Del Angel PCA. jb5 10:45 The patient / caregiver is instructed regarding the plan of care and ED course. mk4 10:45 Inserted saline lock: 20 gauge in right antecubital area and blood collected. mk4 10:49 [facility] [place] Agreement was scanned into [employer] and attached to record. mm15 11:15 Patient visited by Iris Dwyer RN. mk4 11:50 ILYA RUIZ is Referral Physician. ar2 11:55 CT ABD & PELVIS: No Contrast Returned. EDMS 11:57 Discontinued lock intact, bleeding controlled, pressure dressing applied, No kr3 redness/swelling at site. No procedures done that require assistance. Administered Medications: 10:44 Drug: NS 0.9% 1000 ml Route: IV; Rate: bolus; Site: right antecubital; mk4 11:55 Follow up: BP 118 / 76; Pulse 84 bpm; Resp 16 bpm; Temp 97.5; Pulse Ox 100% RA; IV kr3 Status: Infusion discontinued; IV Intake: 700ml 10:44 Drug: Ondansetron 4 mg Route: IVP; Site: right antecubital; mk4 10:44 Drug: morphine 4 mg [morphine 4 mg/mL intravenous cartridge (1 mL)] Route: IVP; Site: mk4 right antecubital; 11:33 Follow up: Pain 10 Adult kr3 Point of Care Testing: Urine : 10:43 hCG Reading: Negative; Control Reading: Positive; jb5 Ranges: Intake: 11:55 IV: 700.00ml; Total: 700.00ml. kr3 Order Results: Lab Order: CBC with Diff; MELINDA'Iris 07/19/16 10:32 Test: WHITE BLOOD COUNT; Value: 9.8; Range: 4.0-10.0; Units: K/mm3; Status: F Test: RED BLOOD COUNT; Value: 5.02; Range: 4.00-5.40; Units: M/mm3; Status: F Test: HEMOGLOBIN; Value: 15.5; Range: 12.0-16.0; Units: g/dl; Status: F Test: HEMATOCRIT; Value: 44.4; Range: 36.0-47.0; Units: %; Status: F Test: MEAN CORPUSCULAR VOLUME; Value: 88.5; Range: 80.0-96.0; Units: fl; Status: F Test: MEAN CORPUSCULAR HEMOGLOBIN; Value: 30.8; Range: 27.0-33.0; Units: pg; Status: F Test: MEAN CORPUSCULAR HGB CONC; Value: 34.9; Range: 32.0-36.5; Units: g/dl; Status: F Test: RED CELL DISTRIBUTION WIDTH; Value: 12.9; Range: 11.5-14.5; Units: %; Status: F Test: PLATELET COUNT, AUTOMATED; Value: 231; Range: 150-450; Units: k/mm3; Status: F Test: NEUTROPHILS %; Value: 78.2; Range: 36.0-66.0; Abnormal: Above high normal; Units: %; Status: F Test: LYMPH %; Value: 12.9; Range: 24.0-44.0; Abnormal: Below low normal; Units: %; Status: F Test: MONO %; Value: 4.7; Range: 0.0-5.0; Units: %; Status: F Test: EOS %; Value: 2.6; Range: 0.0-3.0; Units: %; Status: F Test: BASO %; Value: 0.3; Range: 0.0-1.0; Units: %; Status: F Test: LARGE UNSTAINED CELL %; Value: 1.3; Range: 0.0-4.0; Units: %; Status: F Test: NEUTROPHILS #; Value: 7.7; Range: 1.8-7.7; Units: K/mm3; Status: F Test: LYMPH #; Value: 1.3; Range: 1.5-6.5; Abnormal: Below low normal; Units: K/mm3; Status: F Test: MONO #; Value: 0.5; Range: 0.0-0.8; Units: K/mm3; Status: F Test: EOS #; Value: 0.2; Range: 0.0-0.50; Units: K/mm3; Status: F Test: BASO #; Value: 0.0; Range: 0.0-0.2; Units: K/mm3; Status: F Test: LARGE UNSTAINED CELL #; Value: 0.1; Range: 0.0-0.4; Units: K/mm3; Status: F Lab Order: MED Profile; [facility]' 07/19/16 10:32 Test: GLUCOSE, FASTING; Value: 91; Range: 70-105; Units: MG/DL; Status: F Test: BLOOD UREA NITROGEN; Value: 10; Range: 7-18; Units: MG/DL; Status: F Test: CREATININE FOR GFR; Value: 0.68; Range: 0.55-1.02; Units: MG/DL; Status: F Test: GLOMERULAR FILTRATION RATE; Value: > 60.0; Range: >60; Status: F Test: SODIUM LEVEL; Value: 139; Range: 136-145; Units: MEQ/L; Status: F Test: POTASSIUM SERUM; Value: 3.2; Range: 3.5-5.1; Abnormal: Below low normal; Units: MEQ/L; Status: F Test: CHLORIDE LEVEL; Value: 104; Range: 98-107; Units: MEQ/L; Status: F Test: CARBON DIOXIDE LEVEL; Value: 27; Range: 21-32; Units: MEQ/L; Status: F Test: ANION GAP; Value: 8; Range: 8-16; Units: MEQ/L; Status: F Test: CALCIUM LEVEL; Value: 8.7; Range: 8.5-10.1; Units: MG/DL; Status: F Test Note: ; Units are mL/min/1.73 m2 Chronic Kidney Disease Staging per NKF: Stage I & II GFR >=60 Normal to Mildly Decreased Stage III GFR 30-59 Moderately Decreased Stage IV GFR 15-29 Severely Decreased Stage V GFR <15 Very Little GFR Left ESRD GFR <15 on DOCUMENT PREPARATION SPECIALIST Lab Order: UA; SPEC'M 07/19/16 10:20 Test: APPEARANCE, URINE; Value: HAZY; Range: CLEAR; Status: F Test: COLOR, URINE; Value: YELLOW; Range: YELLOW; Status: F Test: PH,URINE; Value: 5.0; Range: 5.0-9.0; Units: UNITS; Status: F Test: SPECIFIC GRAVITY URINE AUTO; Value: 1.030; Range: 1.002-1.035; Status: F Test: PROTEIN, URINE AUTO; Value: NEGATIVE; Range: NEGATIVE; Units: mg/dL; Status: F Test: GLUCOSE, URINE (UA) AUTO; Value: NEGATIVE; Range: NEGATIVE; Units: mg/dL; Status: F Test: KETONE, URINE AUTO; Value: NEGATIVE; Range: NEGATIVE; Units: mg/dL; Status: F Test: UROBILINOGEN, URINE AUTO; Value: 0.2; Range: 0.0-2.0; Units: mg/dL; Status: F Test: BILIRUBIN, URINE AUTO; Value: NEGATIVE; Range: NEGATIVE; Status: F Test: NITRITE, URINE AUTO; Value: NEGATIVE; Range: NEGATIVE; Status: F Test: LEUKOCYTE ESTERASE, URINE AUTO; Value: TRACE; Range: NEGATIVE; Abnormal: Above high normal; Status: F Test: BLOOD, URINE BLOOD; Value: NEGATIVE; Range: NEGATIVE; Status: F Test: WBC, URINE AUTO; Value: 2; Range: 0-3; Units: /HPF; Status: F Test: RBC, URINE AUTO; Value: 1; Range: 0-3; Units: /HPF; Status: F Test: BACTERIA, URINE AUTO; Value: NEGATIVE; Range: NEGATIVE; Status: F Test: SQUAMOUS EPITHELIAL CELL UR AU; Value: 4; Range: 0-6; Units: /HPF; Status: F Test: MUCUS, URINE; Value: SMALL; Range: NEGATIVE; Status: F Test: HYALINE CAST, URINE AUTO; Value: 0; Range: 0-1; Units: /LPF; Status: F Radiology Order: CT ABD & PELVIS: No Contrast Test: CT ABD & PELVIS: No Contrast REASON FOR EXAMINATION: left renal colic; CT ABDOMEN AND PELVIS WITHOUT IV CONTRAST:; ; CT abdomen and pelvis performed. No oral or IV contrast was administered.; Sagittal and coronal reconstructions images are performed.; ; Visualized lung bases are clear. Liver, spleen, adrenals and pancreas are; unremarkable. Subcentimeter calcification in the upper pole of the right kidney; is seen as well as a tiny subcentimeter calcification in the mid right renal; collecting system. No hydroureteronephrosis is seen. No ureteral or bladder; calculus is seen. There is no abdominal aortic aneurysm. There is no; adenopathy. There is no free air or free fluid. There is no bowel thickening.; The appendix is normal. There is no pelvic mass. The urinary bladder is not; optimally distended and not optimally evaluated. There are no anterior abdominal; wall defects.; ; IMPRESSION:; Two intrarenal subcentimeter calculi right kidney. No ureteral calculi; bilaterally. No hydroureteronephrosis. No other acute abnormality detected.; ; Unreviewed; Outcome: 11:50 Discharge ordered by Provider. ar2 11:57 Discharge Assessment: patient administered narcotics - yes. Pt provided with safe kr3 discharge. The following High Risk Discharge criteria are identified: None. Discharged to home ambulatory. Condition: stable. Discharge instructions given to patient, Instructed on discharge instructions, follow up and referral plans. medication usage, Demonstrated understanding of instructions, medications, Pt was receptive of discharge instructions/ teaching. Prescriptions given X 2. No special radiology studies were completed. Property sent home with patient. 11:58 Patient left the ED. kr3 Signatures: Dispatcher [employer] EDMS Scarlett AndersonRN RN ck1 Cathy Hansen,RN RN kr3 Ayde Del Angel, DUMB WAITER OPERATOR DUMB WAITER OPERATOR jb5 Kelsey Lind RN RN [id number] Earle Cornelius, PAVinay PA-C ar2 Jaki Heck, DUMB WAITER OPERATOR DUMB WAITER OPERATOR ct3 Usha Bhakta mm15 Iris Dwyer, RN RN mk4 MTDD
--- NOTE | 2016-07-21 12:59 | EDDOCDS ---
Physician Documentation [facility] Name: Karen Hendricks Age: 31 yrs Sex: Female : 1985 Arrival Date: 07/19/2016 Time: 09:54 Bed I1 / M1 Private MD: ILYA RUIZ Disposition: 07/19/16 11:50 Discharged to Home/Self Care. Impression: Low back pain - left flank. - Condition is Stable. - Discharge Instructions: Back Pain, Adult. - Prescriptions for Robaxin 500 mg Oral Tablet - take 1 tablet by ORAL route every 6 hours As needed; 20 tablet. Ultram 50 mg Oral Tablet - take 1 tablet by ORAL route every 6 hours As needed MDD: 4 tabs; 20 tablet. - Medication Reconciliation, Local Pharmacy Hours form. - Follow up: ILYA RUIZ; When: As previously arranged; Reason: Recheck today's complaints, Continuance of care. - Problem is new. - Symptoms have improved. Historical: - Allergies: PENICILLINS; - Home Meds: 1. buspirone 10 mg Oral tab 1 tab 2 times per day 2. citalopram 25 mg Oral tab 1 tab once daily 3. Depakote ER 250 mg Oral Tb24 1 tabs once daily 4. hydrochlorothiazide 25 mg Oral tab 1 tab once daily 5. ibuprofen 800 mg Oral tab (Last dose: 07/19/2016 08:30) 6. Tension Headache Reliever 30-325 mg oral tab 2 tabs every 4 hours 7. Vitamin D-3 with Aloe 120-1,000-10 mg-unit-mg oral tab twice a day 8. Tylenol Oral 2 tabs alfie 8 hours (Last dose: 07/19/2016 07:00) - PMHx: Bipolar disorder; Depression; Kidney stones; - PSHx: Tubal ligation; - Social history: Smoking status: Patient states was never smoker of tobacco. No barriers to communication noted, The patient speaks fluent Latvian, Speaks appropriately for age. - Family history: Not pertinent. - : The pt / caregiver states he / she is not on anticoagulants. Home medication list is obtained from the patient. - Exposure Risk Screening:: None identified. 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 0 in. (152.40 cm) (R); Pain 9/10; 11:33 Pain 4/10; kr3 11:55 BP 118 / 76; Pulse 84; Resp 16; Temp 97.5; Pulse Ox 100% on R/A; kr3 09:56 Body Mass Index 36.33 (84.37 kg, 152.40 cm) ct3 MDM: 10:13 IV Saline Lock ordered. ar2 10:13 UCG by Nursing ordered. ar2 10:13 NS 0.9% 1000 ml IV at bolus once ordered. ar2 10:13 Ondansetron 4 mg IVP once ordered. ar2 10:13 morphine 4 mg IVP once ordered. ar2 10:14 CBC with Diff Ordered. EDMS 10:14 MED Profile Ordered. EDMS 10:14 UA Ordered. EDMS 10:14 Urine Culture Ordered. EDMS 10:45 CT ABD & PELVIS: No Contrast Ordered. EDMS 10:48 Financial registration complete. mm15 10:49 [facility] [place] Agreement was scanned into [employer] and attached to record. mm15 11:16 CBC with Diff Reviewed. ar2 11:16 MED Profile Reviewed. ar2 11:16 UA Reviewed. ar2 14:55 T-Sheet-- Draft Copy was scanned into [employer] and attached to record. gb 14:55 Radiology Report was scanned into [employer] and attached to record. Point of Care Testing: Urine : 10:43 hCG Reading: Negative; Control Reading: Positive; jb5 Ranges: Administered Medications: 10:44 Drug: NS 0.9% 1000 ml Route: IV; Rate: bolus; Site: right antecubital; mk4 11:55 Follow up: BP 118 / 76; Pulse 84 bpm; Resp 16 bpm; Temp 97.5; Pulse Ox 100% RA; IV kr3 Status: Infusion discontinued; IV Intake: 700ml 10:44 Drug: Ondansetron 4 mg Route: IVP; Site: right antecubital; mk4 10:44 Drug: morphine 4 mg [morphine 4 mg/mL intravenous cartridge (1 mL)] Route: IVP; Site: mk4 right antecubital; 11:33 Follow up: Pain 4/10 Adult kr3 Signatures: Dispatcher [employer] EDDia Mcdaniel, Reg Reg gb Cathy Hansen,RN RN kr3 Kelsey LindRN RN [email or web address] Earle Cornelius, KRYSTAL PAVinay booker2 Usha Bhakta mm15 Iris Dwyer, RN RN mk4 The chart was reviewed and I authenticate all verbal orders and agree with the evaluation and treatment provided.Attachments: 10:49 [facility] Payment Agreement mm15 14:55 T-Sheet-- Draft Copy gb Chart Complete MTDD
--- NOTE | 2016-07-21 12:59 | EDDOCDS ---
Nurse's Notes [facility] Name: Karen Hendricks Age: 31 yrs Sex: Female : 1985 Arrival Date: 07/19/2016 Time: 09:54 Bed I1 / M1 Private MD: ILYA RUIZ Diagnosis: Low back pain-left flank Presentation: 07/19 09:59 Presenting complaint: Patient states: Left sided flank pain. History of kidney stones. jo3 Passes them frequently. Out of Flomax. Acute neurological deficits are not present. Mechanism of Injury: No Mechanism of Injury. Adult Sepsis Screening: The patient does not have new or worsening altered mentation. Patient's respiratory rate is less than 22. Systolic blood pressure is greater than 100. Patient has a qSOFA score of 0- Negative Sepsis Screen. Suicide/Homicide risk assessment- the patient denies having any suicidal and/or homicidal ideations and does not present with any other emotional, behavioral or mental health complaints. 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 Transition of care: patient was not received from another setting of care. 09:59 Acuity: VERN Level 3 jo3 09:59 Method Of Arrival: Walkin/Carried/Asstd jo3 Triage Assessment: 10:03 General: Appears uncomfortable, Behavior is appropriate for age, cooperative. Pain: jo3 Pain currently is 9 out of 10 on a pain scale. HIV screening NA for this visit Offered previously. Neurological: Level of Consciousness is awake, alert, Oriented to person, place, time. Respiratory: Airway is patent Respiratory effort is even, unlabored. Derm: Skin is pink, warm & dry. 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 buspirone 10 mg Oral tab 1 tab 2 times per day 2. citalopram 25 mg Oral tab 1 tab once daily 3. Depakote ER 250 mg Oral Tb24 1 tabs once daily 4. hydrochlorothiazide 25 mg Oral tab 1 tab once daily 5. ibuprofen 800 mg Oral tab (Last dose: 07/19/2016 08:30) 6. Tension Headache Reliever 30-325 mg oral tab 2 tabs every 4 hours 7. Vitamin D-3 with Aloe 120-1,000-10 mg-unit-mg oral tab twice a day 8. Tylenol Oral 2 tabs alfie 8 hours (Last dose: 07/19/2016 07:00) - PMHx: Bipolar disorder; Depression; Kidney stones; - PSHx: Tubal ligation; - Social history: Smoking status: Patient states was never smoker of tobacco. No barriers to communication noted, The patient speaks fluent Monegasque, Speaks appropriately for age. - Family history: Not pertinent. - : The pt / caregiver states he / she is not on anticoagulants. Home medication list is obtained from the patient. - Exposure Risk Screening:: None identified. Screenin:45 Screening information is obtained from the patient. Fall risk: No risks identified. mk4 Assistance ADL's: requires no assistance with activities of daily living. Abuse/DV Screen: The patient / caregiver reports he/she is: not in a situation that causes fear, pain or injury. Nutritional screening: No deficits noted. Advance Directives: Currently, there is no health care proxy. There is no active DNR order. There is no living will. There is no Power of Psychology Department Chair. Advance directive information has not previously been placed in an [facility] medical record. Further advance directive information is declined. home support is adequate. Assessment: 10:45 General: Appears uncomfortable. Pain: Location: left lower quadrant. Neurological: mk4 Level of Consciousness is awake, alert. Respiratory: Airway is patent Respiratory effort is even, unlabored, Respiratory pattern is regular. Derm: Skin is intact, is healthy with good turgor, Skin is pink, warm & dry. Musculoskeletal: No deficits noted. 11:34 Reassessment: reports initially had some pain relief but now pain is 4/10 and kr3 increasing, provider notified. Vital Signs: 09:56 BP 126 / 82; Pulse 93; Resp 18; Temp 98.8(O); Pulse Ox 97% ; Weight 84.37 kg (R); ct3 Height 5 ft. 0 in. (152.40 cm) (R); Pain 9/10; 11:33 Pain 4/10; kr3 11:55 BP 118 / 76; Pulse 84; Resp 16; Temp 97.5; Pulse Ox 100% on R/A; kr3 09:56 Body Mass Index 36.33 (84.37 kg, 152.40 cm) ct3 Vitals: 09:56 Log In Time: July 19, 2016 at 09:53. ct3 ED Course: 09:55 Patient visited by Jaki Heck PCA. ct3 09:55 ILYA RUIZ is Private Physician. ct3 09:55 Patient moved to Waiting ct3 09:57 Patient moved to Pre RCE ct3 10:01 Triage Initiated jo3 10:04 Patient visited by Kelsey Lind RN. jo3 10:04 Patient moved to Triage 2 jo3 10:07 Earle Cornelius PA-C is PHCP. ar2 10:07 Pablito Luna MD is Attending Physician. ar2 10:07 Patient visited by Earle Cornelius PA-C. ar2 10:21 Patient moved to I1 / M1 ck1 10:21 Urine Culture Sent. ck1 10:21 UA Sent. ck1 10:34 MED Profile Sent. mk4 10:34 CBC with Diff Sent. mk4 10:43 Patient visited by Iris Dwyer RN. mk4 10:43 Patient visited by Ayde Del Angel PCA. jb5 10:45 The patient / caregiver is instructed regarding the plan of care and ED course. mk4 10:45 Inserted saline lock: 20 gauge in right antecubital area and blood collected. mk4 10:49 [facility] Payment Agreement was scanned into [employer] and attached to record. mm15 11:15 Patient visited by Iris Dwyer RN. mk4 11:50 ILYA RUIZ is Referral Physician. ar2 11:55 CT ABD & PELVIS: No Contrast Returned. EDMS 11:57 Discontinued lock intact, bleeding controlled, pressure dressing applied, No kr3 redness/swelling at site. No procedures done that require assistance. 14:55 T-Sheet-- Draft Copy was scanned into [employer] and attached to record. gb 14:55 Radiology Report was scanned into [employer] and attached to record. gb Administered Medications: 10:44 Drug: NS 0.9% 1000 ml Route: IV; Rate: bolus; Site: right antecubital; mk4 11:55 Follow up: BP 118 / 76; Pulse 84 bpm; Resp 16 bpm; Temp 97.5; Pulse Ox 100% RA; IV kr3 Status: Infusion discontinued; IV Intake: 700ml 10:44 Drug: Ondansetron 4 mg Route: IVP; Site: right antecubital; mk4 10:44 Drug: morphine 4 mg [morphine 4 mg/mL intravenous cartridge (1 mL)] Route: IVP; Site: mk4 right antecubital; 11:33 Follow up: Pain 09/10 Adult kr3 Point of Care Testing: Urine : 10:43 hCG Reading: Negative; Control Reading: Positive; jb5 Ranges: Intake: 11:55 IV: 700.00ml; Total: 700.00ml. kr3 Order Results: Lab Order: CBC with Diff; SPEC'M 07/19/16 10:32 Test: WHITE BLOOD COUNT; Value: 9.8; Range: 4.0-10.0; Units: K/mm3; Status: F Test: RED BLOOD COUNT; Value: 5.02; Range: 4.00-5.40; Units: M/mm3; Status: F Test: HEMOGLOBIN; Value: 15.5; Range: 12.0-16.0; Units: g/dl; Status: F Test: HEMATOCRIT; Value: 44.4; Range: 36.0-47.0; Units: %; Status: F Test: MEAN CORPUSCULAR VOLUME; Value: 88.5; Range: 80.0-96.0; Units: fl; Status: F Test: MEAN CORPUSCULAR HEMOGLOBIN; Value: 30.8; Range: 27.0-33.0; Units: pg; Status: F Test: MEAN CORPUSCULAR HGB CONC; Value: 34.9; Range: 32.0-36.5; Units: g/dl; Status: F Test: RED CELL DISTRIBUTION WIDTH; Value: 12.9; Range: 11.5-14.5; Units: %; Status: F Test: PLATELET COUNT, AUTOMATED; Value: 231; Range: 150-450; Units: k/mm3; Status: F Test: NEUTROPHILS %; Value: 78.2; Range: 36.0-66.0; Abnormal: Above high normal; Units: %; Status: F Test: LYMPH %; Value: 12.9; Range: 24.0-44.0; Abnormal: Below low normal; Units: %; Status: F Test: MONO %; Value: 4.7; Range: 0.0-5.0; Units: %; Status: F Test: EOS %; Value: 2.6; Range: 0.0-3.0; Units: %; Status: F Test: BASO %; Value: 0.3; Range: 0.0-1.0; Units: %; Status: F Test: LARGE UNSTAINED CELL %; Value: 1.3; Range: 0.0-4.0; Units: %; Status: F Test: NEUTROPHILS #; Value: 7.7; Range: 1.8-7.7; Units: K/mm3; Status: F Test: LYMPH #; Value: 1.3; Range: 1.5-6.5; Abnormal: Below low normal; Units: K/mm3; Status: F Test: MONO #; Value: 0.5; Range: 0.0-0.8; Units: K/mm3; Status: F Test: EOS #; Value: 0.2; Range: 0.0-0.50; Units: K/mm3; Status: F Test: BASO #; Value: 0.0; Range: 0.0-0.2; Units: K/mm3; Status: F Test: LARGE UNSTAINED CELL #; Value: 0.1; Range: 0.0-0.4; Units: K/mm3; Status: F Lab Order: [facility] Profile; [facility] 07/19/16 10:32 Test: GLUCOSE, FASTING; Value: 91; Range: 70-105; Units: MG/DL; Status: F Test: BLOOD UREA NITROGEN; Value: 10; Range: 7-18; Units: MG/DL; Status: F Test: CREATININE FOR GFR; Value: 0.68; Range: 0.55-1.02; Units: MG/DL; Status: F Test: GLOMERULAR FILTRATION RATE; Value: > 60.0; Range: >60; Status: F Test: SODIUM LEVEL; Value: 139; Range: 136-145; Units: MEQ/L; Status: F Test: POTASSIUM SERUM; Value: 3.2; Range: 3.5-5.1; Abnormal: Below low normal; Units: MEQ/L; Status: F Test: CHLORIDE LEVEL; Value: 104; Range: 98-107; Units: MEQ/L; Status: F Test: CARBON DIOXIDE LEVEL; Value: 27; Range: 21-32; Units: MEQ/L; Status: F Test: ANION GAP; Value: 8; Range: 8-16; Units: MEQ/L; Status: F Test: CALCIUM LEVEL; Value: 8.7; Range: 8.5-10.1; Units: MG/DL; Status: F Test Note: ; Units are mL/min/1.73 m2 Chronic Kidney Disease Staging per NKF: Stage I & II GFR >=60 Normal to Mildly Decreased Stage III GFR 30-59 Moderately Decreased Stage IV GFR 15-29 Severely Decreased Stage V GFR <15 Very Little GFR Left ESRD GFR <15 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 Lab Order: UA; SPEC'M 07/19/16 10:20 Test: APPEARANCE, URINE; Value: HAZY; Range: CLEAR; Status: F Test: COLOR, URINE; Value: YELLOW; Range: YELLOW; Status: F Test: PH,URINE; Value: 5.0; Range: 5.0-9.0; Units: UNITS; Status: F Test: SPECIFIC GRAVITY URINE AUTO; Value: 1.030; Range: 1.002-1.035; Status: F Test: PROTEIN, URINE AUTO; Value: NEGATIVE; Range: NEGATIVE; Units: mg/dL; Status: F Test: GLUCOSE, URINE (UA) AUTO; Value: NEGATIVE; Range: NEGATIVE; Units: mg/dL; Status: F Test: KETONE, URINE AUTO; Value: NEGATIVE; Range: NEGATIVE; Units: mg/dL; Status: F Test: UROBILINOGEN, URINE AUTO; Value: 0.2; Range: 0.0-2.0; Units: mg/dL; Status: F Test: BILIRUBIN, URINE AUTO; Value: NEGATIVE; Range: NEGATIVE; Status: F Test: NITRITE, URINE AUTO; Value: NEGATIVE; Range: NEGATIVE; Status: F Test: LEUKOCYTE ESTERASE, URINE AUTO; Value: TRACE; Range: NEGATIVE; Abnormal: Above high normal; Status: F Test: BLOOD, URINE BLOOD; Value: NEGATIVE; Range: NEGATIVE; Status: F Test: WBC, URINE AUTO; Value: 2; Range: 0-3; Units: /HPF; Status: F Test: RBC, URINE AUTO; Value: 1; Range: 0-3; Units: /HPF; Status: F Test: BACTERIA, URINE AUTO; Value: NEGATIVE; Range: NEGATIVE; Status: F Test: SQUAMOUS EPITHELIAL CELL UR AU; Value: 4; Range: 0-6; Units: /HPF; Status: F Test: MUCUS, URINE; Value: SMALL; Range: NEGATIVE; Status: F Test: HYALINE CAST, URINE AUTO; Value: 0; Range: 0-1; Units: /LPF; Status: F Lab Order: Urine Culture; SPEC'M 07/19/16 10:20 Test: URINE CULTURE; Value: <EXTERNAL COMMENT eCWMed> FULL REPORT IN LAB NOTES (eCW and Medent).; Status: F Test: URINE CULTURE; Value: URINE CULTURE RESULT NO GROWTH CLINICAL SIGNIFICANCE 1 ORGANISM; Status: F Radiology Order: CT ABD & PELVIS: No Contrast Test: CT ABD & PELVIS: No Contrast REASON FOR EXAMINATION: left renal colic; CT ABDOMEN AND PELVIS WITHOUT IV CONTRAST:; ; CT abdomen and pelvis performed. No oral or IV contrast was administered.; Sagittal and coronal reconstructions images are performed.; ; Visualized lung bases are clear. Liver, spleen, adrenals and pancreas are; unremarkable. Subcentimeter calcification in the upper pole of the right kidney; is seen as well as a tiny subcentimeter calcification in the mid right renal; collecting system. No hydroureteronephrosis is seen. No ureteral or bladder; calculus is seen. There is no abdominal aortic aneurysm. There is no; adenopathy. There is no free air or free fluid. There is no bowel thickening.; The appendix is normal. There is no pelvic mass. The urinary bladder is not; optimally distended and not optimally evaluated. There are no anterior abdominal; wall defects.; ; IMPRESSION:; ; Two intrarenal subcentimeter calculi right kidney. No ureteral calculi; bilaterally. No hydroureteronephrosis. No other acute abnormality detected.; ; ; Signed by; Hang Fuller MD 07/19/2016 01:22 P; Outcome: 11:50 Discharge ordered by Provider. ar2 11:57 Discharge Assessment: patient administered narcotics - yes. Pt provided with safe kr3 discharge. The following High Risk Discharge criteria are identified: None. Discharged to home ambulatory. Condition: stable. Discharge instructions given to patient, Instructed on discharge instructions, follow up and referral plans. medication usage, Demonstrated understanding of instructions, medications, Pt was receptive of discharge instructions/ teaching. Prescriptions given X 2. No special radiology studies were completed. Property sent home with patient. 11:58 Patient left the ED. kr3 Signatures: Dispatcher [employer] EDMS Jcarlos, Dia, Reg Reg gb Yamile-Cheyanne,Scarlett,RN RN ck1 Cathy Hansen,RN RN kr3 Ayde Del Angel, LINDERMAN MACHINE OPERATOR LINDERMAN MACHINE OPERATOR jb5 Kelsey Lind,RN RN jo3 Earle Cornelius, PA-C PA-C ar2 Umang, Jaki, LINDERMAN MACHINE OPERATOR LINDERMAN MACHINE OPERATOR ct3 Usha Bhakta mm15 Iris Dwyer, RN RN mk4 Chart Complete MTDD
--- NOTE | 2016-07-21 13:00 | EDDOCDS ---
Physician Documentation [facility] Name: Karen Hendricks Age: 31 yrs Sex: Female : 1985 Arrival Date: 07/19/2016 Time: 09:54 Bed I1 / M1 Private MD: ILYA RUIZ Disposition: 07/19/16 11:50 Discharged to Home/Self Care. Impression: Low back pain - left flank. - Condition is Stable. - Discharge Instructions: Back Pain, Adult. - Prescriptions for Robaxin 500 mg Oral Tablet - take 1 tablet by ORAL route every 6 hours As needed; 20 tablet. Ultram 50 mg Oral Tablet - take 1 tablet by ORAL route every 6 hours As needed MDD: 4 tabs; 20 tablet. - Medication Reconciliation, Local Pharmacy Hours form. - Follow up: ILYA RUIZ; When: As previously arranged; Reason: Recheck today's complaints, Continuance of care. - Problem is new. - Symptoms have improved. Historical: - Allergies: PENICILLINS; - Home Meds: 1. buspirone 10 mg Oral tab 1 tab 2 times per day 2. citalopram 25 mg Oral tab 1 tab once daily 3. Depakote ER 250 mg Oral Tb24 1 tabs once daily 4. hydrochlorothiazide 25 mg Oral tab 1 tab once daily 5. ibuprofen 800 mg Oral tab (Last dose: 07/19/2016 08:30) 6. Tension Headache Reliever 30-325 mg oral tab 2 tabs every 4 hours 7. Vitamin D-3 with Aloe 120-1,000-10 mg-unit-mg oral tab twice a day 8. Tylenol Oral 2 tabs alfie 8 hours (Last dose: 07/19/2016 07:00) - PMHx: Bipolar disorder; Depression; Kidney stones; - PSHx: Tubal ligation; - Social history: Smoking status: Patient states was never smoker of tobacco. No barriers to communication noted, The patient speaks fluent Romanian, Speaks appropriately for age. - Family history: Not pertinent. - : The pt / caregiver states he / she is not on anticoagulants. Home medication list is obtained from the patient. - Exposure Risk Screening:: None identified. 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 0 in. (152.40 cm) (R); Pain 9/10; 11:33 Pain 4/10; kr3 11:55 BP 118 / 76; Pulse 84; Resp 16; Temp 97.5; Pulse Ox 100% on R/A; kr3 09:56 Body Mass Index 36.33 (84.37 kg, 152.40 cm) ct3 MDM: 10:13 IV Saline Lock ordered. ar2 10:13 UCG by Nursing ordered. ar2 10:13 NS 0.9% 1000 ml IV at bolus once ordered. ar2 10:13 Ondansetron 4 mg IVP once ordered. ar2 10:13 morphine 4 mg IVP once ordered. ar2 10:14 CBC with Diff Ordered. EDMS 10:14 MED Profile Ordered. EDMS 10:14 UA Ordered. EDMS 10:14 Urine Culture Ordered. EDMS 10:45 CT ABD & PELVIS: No Contrast Ordered. EDMS 10:48 Financial registration complete. mm15 10:49 [facility] Payment Agreement was scanned into [employer] and attached to record. mm15 11:16 CBC with Diff Reviewed. ar2 11:16 MED Profile Reviewed. ar2 11:16 UA Reviewed. ar2 14:55 T-Sheet-- Draft Copy was scanned into [employer] and attached to record. gb 14:55 Radiology Report was scanned into [employer] and attached to record. Point of Care Testing: Urine : 10:43 hCG Reading: Negative; Control Reading: Positive; jb5 Ranges: Administered Medications: 10:44 Drug: NS 0.9% 1000 ml Route: IV; Rate: bolus; Site: right antecubital; mk4 11:55 Follow up: BP 118 / 76; Pulse 84 bpm; Resp 16 bpm; Temp 97.5; Pulse Ox 100% RA; IV kr3 Status: Infusion discontinued; IV Intake: 700ml 10:44 Drug: Ondansetron 4 mg Route: IVP; Site: right antecubital; mk4 10:44 Drug: morphine 4 mg [morphine 4 mg/mL intravenous cartridge (1 mL)] Route: IVP; Site: mk4 right antecubital; 11:33 Follow up: Pain 4/10 Adult kr3 Signatures: Dispatcher [employer] EDDia Mcdaniel, Reg Reg gb Cathy Hansen,RN RN kr3 Kelsey LindRN RN [email or web address] Earle Cornelius, KRYSTAL PAVinay booker2 Usha Bhakta mm15 Iris Dwyer, RN RN mk4 The chart was reviewed and I authenticate all verbal orders and agree with the evaluation and treatment provided.Attachments: 10:49 [facility] Payment Agreement mm15 14:55 T-Sheet-- Draft Copy gb Chart Complete MTDD
== END 2016-07-19 11:58 | disposition home or self-care (01) ==
LOC: M ED 09:54
DX: M54.5 Low back pain (principal); R10.30 Lower abdominal pain, unspecified; F31.9 Bipolar disorder, unspecified; Z87.442 Personal history of urinary calculi; Z79.899 Other long term (current) drug therapy; Z88.0 Allergy status to penicillin
CPT/HCPCS: 36415; 74176; 80048; 81001; 81025; 85025; 87086; 96361; 96374; 96375; 99284; J2405

== ENCOUNTER 2017-02-20 14:29 | Emergency (ER) | payer MEDICAID, OTHER ==
[~2017-02-20] VITALS: Ht 152.4 cm; Wt 85.0 kg
[2017-02-20] MEDS ORDERED: VARE1TA PO (14:40)
[2017-02-20] MEDS ORDERED: BACT800T5 PO (17:47)
[2017-02-20] MEDS ORDERED: TRAM50TA2 PO (17:49)
[2017-02-20 18:01] VITALS: BP 137/68
== END 2017-02-20 18:02 | disposition home or self-care (01) ==
LOC: M ED 14:29
DX: L02.11 Cutaneous abscess of neck (principal); F17.210 Nicotine dependence, cigarettes, uncomplicated; Z88.0 Allergy status to penicillin

== ENCOUNTER 2017-02-27 02:05 | Emergency (ER) | payer MEDICAID ==
[~2017-02-27] VITALS: Ht 152.4 cm; Wt 85.0 kg
[~2017-02-27 02:05] MED LIST: BACT800T5 PO; TRAM50TA2 PO; VARE1TA PO
[2017-02-27] MEDS ORDERED: NS 1,000 ML IV ONE ×2 (02:30→04:15)
[2017-02-27 03:11] LABS: BASO # 0.1 10^3/uL (0.0-0.2); BASO % 0.4 % (0.0-1.0); EOS # 0.3 10^3/uL (0.0-0.50); EOS % 2.7 % (0.0-3.0); IMMATURE GRANULOCYTE % 0.2 % (0-0); LYMPH # 3.6 10^3/uL (1.5-6.5); LYMPH % 29.1 % (24.0-44.0); MEAN CORPUSCULAR HEMOGLOBIN 31.3 pg (27.0-33.0); MEAN CORPUSCULAR HGB CONC 34.3 g/dl (32.0-36.5); MEAN CORPUSCULAR VOLUME 91.4 fl (80.0-96.0); MONO # 1.2 10^3/uL (0.0-0.8); MONO % 9.7 % (0.0-5.0); NEUTROPHILS # 7.1 10^3/uL (1.8-7.7); NEUTROPHILS % 57.9 % (36.0-66.0); PLATELET COUNT, AUTOMATED 296 10^3/uL (150-450); RED CELL DISTRIBUTION WIDTH 12.2 % (11.5-14.5); WHITE BLOOD COUNT 12.2 10^3/uL (4.0-10.0)
[2017-02-27] MEDS ORDERED: MORPHINE 4 MG/ML 1ML SYRINGE IV ONE (03:15)
[2017-02-27] MEDS ORDERED: KETOROLAC 30 MG/ML VIAL (J1885) IV ONE (03:15)
[2017-02-27 03:18] LABS: CALCIUM OXALATE CRYSTALS LARGE
[2017-02-27 03:23] LABS: CONTROL LINE HCG INT CTR LINE PRESENT
[2017-02-27 03:31] LABS: ALBUMIN 4.1 GM/DL (3.2-5.2); ALBUMIN/GLOBULIN RATIO 1.24 (1.00-1.93); ALKALINE PHOSPHATASE 107 U/L (45-117); ALT/SGPT 76 U/L (12-78); AMYLASE 35 U/L (25-115); ANION GAP 7 MEQ/L (8-16); AST/SGOT 40 U/L (15-37); BILIRUBIN,DIRECT < 0.1 MG/DL (0.0-0.2); BILIRUBIN,TOTAL 0.3 MG/DL (0.2-1.0); BLOOD UREA NITROGEN 8 MG/DL (7-18); CALCIUM LEVEL 9.6 MG/DL (8.5-10.1); CARBON DIOXIDE LEVEL 29 MEQ/L (21-32); CHLORIDE LEVEL 106 MEQ/L (98-107); CREATININE FOR GFR 0.74 MG/DL (0.55-1.02); GLOMERULAR FILTRATION RATE > 60.0 (>60); GLUCOSE, FASTING 114 MG/DL (70-105); POTASSIUM SERUM 3.7 MEQ/L (3.5-5.1); SODIUM LEVEL 142 MEQ/L (136-145); TOTAL PROTEIN 7.4 GM/DL (6.4-8.2)
[2017-02-27] MEDS ORDERED: CIPROFLOXACIN 400 MG in APPROPRIATE DILUENT 1 EA IV ONE (04:15)
[2017-02-27] MEDS ORDERED: TAMSULOSIN 0.4 MG CAP PO ONE (04:15)
--- NOTE | 2017-02-27 05:00 | REPUSA ---
CLINICAL HISTORY: Abdominal pain. TECHNIQUE: Multiple axial, sagittal and coronal CT images were obtained through the abdomen and pelvi s without administration of oral or IV contrast material. COMMENTS: The liver is mildly enlarged decreased attenuation without mass or defect. There is no intra or extra hepatic biliary ductal dilatation. The spleen is normal. The gallbladder is within normal limits. The pancreas is of normal contour and attenuation characteristics. There is no evidence of adrenal mass. Bilateral nonobstructing renal stones ranging in size between 3 and 6 mm. 5.6 mm obstructing stone of the most distal aspect of the right ureter just above the ureterovesical junction. Mild hydroureteronephrosis. There is no evidence for appendicitis. There is no bowel wall thickening. No evidence for small or la rge bowel obstruction. There is no evidence of abdominal ascites or lymphadenopathy. There is no evidence of intrinsic or extrinsic bladder mass. There is no pelvic ascites or lymphadeno maura. Images of the lung bases show no evidence of pleural or parenchymal mass. There are no pleural effusi ons. The bony structures are free of lytic or blastic lesions. IMPRESSION: Bilateral nephrolithiasis. Obstructing stone of the most distal aspect of the right ureter. Hepatomegaly with fat infiltration. Thank you for your kind referral of this patient.
[2017-02-27] MEDS ORDERED: FLOM5CAP PO (05:08)
[2017-02-27] MEDS ORDERED: NORCO 5/325MG TABLET (BULK FOR ED) PO ONE (05:15)
[2017-02-27] MEDS ORDERED: CIPR-249 PO (05:24)
[2017-02-27 05:29] VITALS: BP 131/85
== END 2017-02-27 05:30 | disposition home or self-care (01) ==
LOC: M ED 02:05
DX: N20.1 Calculus of ureter (principal); F41.9 Anxiety disorder, unspecified; F17.210 Nicotine dependence, cigarettes, uncomplicated; Z79.899 Other long term (current) drug therapy; Z88.0 Allergy status to penicillin; Z87.442 Personal history of urinary calculi
CPT/HCPCS: 74176; 80048; 80076; 81001; 82150; 83690; 84703; 85025; 87086; 96361; 96365; 96375; 99283; J0744; J1885

== ENCOUNTER → 2017-09-26 | Outpatient (REF) | payer OTHER | LOC: M LAB REF 18:47 | DX: L72.3 Sebaceous cyst (principal) ==

== ENCOUNTER → 2017-10-01 | Outpatient (REF) | payer OTHER, MEDICAID ==
[2017-10-01 13:46] LABS: APPEARANCE, URINE HAZY (CLEAR); BACTERIA, URINE AUTO 1+ (NEGATIVE); BILIRUBIN, URINE AUTO NEGATIVE (NEGATIVE); BLOOD, URINE BLOOD NEGATIVE (NEGATIVE); COLOR, URINE YELLOW (YELLOW); GLUCOSE, URINE (UA) AUTO NEGATIVE (NEGATIVE); KETONE, URINE AUTO NEGATIVE (NEGATIVE); LEUKOCYTE ESTERASE, URINE AUTO NEGATIVE (NEGATIVE); MUCUS, URINE SMALL (NEGATIVE); NITRITE, URINE AUTO NEGATIVE (NEGATIVE); PROTEIN, URINE AUTO NEGATIVE (NEGATIVE); RBC, URINE AUTO 1 /HPF (0-3); SPECIFIC GRAVITY URINE AUTO 1.018 (1.002-1.035); SQUAMOUS EPITHELIAL CELL UR AU 4 /HPF (0-6); UROBILINOGEN, URINE AUTO 0.2 mg/dL (0.0-2.0); WBC, URINE AUTO 3 /HPF (0-3)
== END ==
LOC: M SMT 13:19
DX: N20.0 Calculus of kidney (principal); N39.41 Urge incontinence
CPT/HCPCS: 81001

== ENCOUNTER → 2017-10-07 | Outpatient (CLI) | payer OTHER, MEDICAID | LOC: M RAD 11:46 | DX: N20.0 Calculus of kidney (principal) | CPT/HCPCS: 76775 ==

== ENCOUNTER 2018-06-16 09:28 | Inpatient (IN) | payer MEDICAID, OTHER ==
[~2018-06-16] VITALS: Ht 152.4 cm; Wt 101.2 kg
[~2018-06-16 09:28] MED LIST changes: +CIPR-249 PO; +FLOM0.4C39 PO
[2018-06-16] MEDS ORDERED: CITA20TA4 PO (09:35)
[2018-06-16] MEDS ORDERED: VITA100L PO (09:35)
[2018-06-16] MEDS ORDERED: PANT40TA3 PO (09:35)
[2018-06-16] MEDS ORDERED: IRON27TA2 PO (09:35)
[2018-06-16] MEDS ORDERED: RISP1TAB3 PO (09:35)
[2018-06-16] MEDS ORDERED: BUSP5TA PO (09:35)
[2018-06-16 10:10] LABS: HEMATOCRIT 41.6 % (36.0-47.0); HEMOGLOBIN 14.3 g/dl (12.0-15.5); MEAN CORPUSCULAR HEMOGLOBIN 31.4 pg (27.0-33.0); MEAN CORPUSCULAR HGB CONC 34.4 g/dl (32.0-36.5); MEAN CORPUSCULAR VOLUME 91.4 fl (80.0-96.0); PLATELET COUNT, AUTOMATED 226 10^3/uL (150-450); RED BLOOD COUNT 4.55 10^6/uL (4.00-5.40)
[2018-06-16 10:45] LABS: HCG, SERUM QUALITATIVE NEGATIVE (NEGATIVE)
[2018-06-16 10:46] LABS: AMPHETAMINES LEVEL URINE NEGATIVE (NEGATIVE); BARBITURATES URINE NEGATIVE (NEGATIVE); BENZODIAZEPINES URINE POSITIVE (NEGATIVE); CANNABINOIDS URINE POSITIVE (NEGATIVE); COCAINE METABOLITE URINE NEGATIVE (NEGATIVE); METHADONE URINE NEGATIVE (NEGATIVE); OPIATES URINE NEGATIVE (NEGATIVE); PHENCYCLIDINE URINE NEGATIVE (NEGATIVE)
[2018-06-16 11:00] LABS: ACETAMINOPHEN LEVEL < 2.0 UG/ML (10.0-30.0); ALBUMIN 3.5 GM/DL (3.2-5.2); ALT/SGPT 42 U/L (12-78); BILIRUBIN,DIRECT < 0.1 MG/DL (0.0-0.2); BILIRUBIN,TOTAL 0.2 MG/DL (0.2-1.0); BLOOD UREA NITROGEN 10 MG/DL (7-18); CALCIUM LEVEL 8.6 MG/DL (8.5-10.1); CARBON DIOXIDE LEVEL 23 MEQ/L (21-32); CHLORIDE LEVEL 107 MEQ/L (98-107); CREATININE FOR GFR 0.64 MG/DL (0.55-1.30); ETHYL ALCOHOL (ETHANOL) < 0.003 % (0.000-0.010); GLOMERULAR FILTRATION RATE > 60.0 (>60); GLUCOSE, FASTING 105 MG/DL (70-100); POTASSIUM SERUM 3.9 MEQ/L (3.5-5.1); SALICYLATE LEVEL < 1.7 MG/DL (5.0-30.0); SODIUM LEVEL 142 MEQ/L (136-145); TOTAL PROTEIN 6.5 GM/DL (6.4-8.2)
[2018-06-16] MEDS ORDERED: MAALOX 30 ML SUSP *UDC PO PRN (14:00)
[2018-06-16] MEDS ORDERED: traZODone 50 MG TAB PO PRN (14:00)
[2018-06-16] MEDS ORDERED: MOM 30ML SUSPENSION UDC PO PRN (14:00)
[2018-06-16] MEDS ORDERED: IRON50TA PO (14:28)
[2018-06-16] MEDS ORDERED: busPIRone 10 MG TAB PO ONE (14:30)
--- NOTE | 2018-06-16 15:21 | HPEPDOC ---
[facility] Medical History & Physical Date of Admission Jun 16, 2018 History and Physical PCP: [facility] ATTENDING: Dr. Kneji Newton HPI: 33yoF admitted to [facility] for unspecified depressive disorder, being medically examined today. No acute medical complaints today. Denies any fevers, chills, weakness, fatigue, SANCHES, CP, SOB, cough, palpitations, abdominal pain, N/V/D or changes in bowel or bladder habits. PMHx: Anxiety depression Bipolar disorder H/O alcohol use H/O substance use Fe deficiency B12 deficiency H/O anemia GERD BMI 43.1 PSHX: BTL SOCHX: Resides in: [facility] Marital Status: Kids: 6 Employment: unemployed Tobacco use: denies ETOH: States none in the past 30 days. Previously, 1 bottle vodka daily x 3 years. Illicit Drugs: Recently opiates, gabapentin, marijuana IV Drug Use: x2 Tattoos done unprofessionally: Denies FAMHX: Mother: Alive, DVT Father: Alive, HTN, alcohol use Siblings: 6 brothers, 2 sisters Alive, well Children: Alive, well Unexpected deaths due to medical reasons: None. ROS: As noted in HPI, otherwise 11pt ROS of systems reviewed and remarkable only for [LMP 05/22/. PE: GEN: 33yoF, appears stated age. Well-nourished, well developed. No acute distress. Alert and oriented x 3. Pleasant, interactive. HEENT: Normocephalic, atraumatic. Pupils are equal, round, and reactive to light. Extraocular movements are intact. No nystagmus appreciated. Sclera are n onicteric. Conjunctiva without injection. Nose midline. Nasal turbinates without bogginess. EACs both patent BL. TMs both visualized and sosa with good cone of light, no bulging or erythema. No facial asymmetry. Moist mucous membranes. Dentition fair. Pharynx pink and moist, no cobblestoning. Neck supple, trachea midline. No lymphadenopathy or thyromegaly appreciated. CHEST: Regular rate and rhythm, +S1, +S2 LUNGS: Clear to auscultation bilaterally. No wheezes, rales, or rhonchi. Breathing appears symmetric and easy. Patient is speaking in full sentences. No accessory muscle use. ABD: Round, soft, non-tender, non-distended. +Bowel sounds throughout. No rebound or guarding. No costovertebral angle tenderness. EXT: Pulses 2+ bilaterally dorsalis pedis and radial. No lower extremity edema appreciated. SKIN: [place], dry, warm. Capillary refill <2sec. No rashes. NEURO: Alert and oriented x 3. Cranial nerves III-XII are intact. No focal deficits appreciated. EKG: pending A&P: 33yoF admitted to [facility] for unspecified depressive disorder 1. Psych. Plan per Psychiatry. Obtain baseline EKG to assure the safety of psychiatric medications as they can prolong the QT interval. 2. GERD. Continue protonix 40 mg po daily. 3. Tattoo done unprofessionally. Pt agrees to HIV/Hepatitis screening. 4. Follow up with PCP on discharge. 5. Substance use. Management per psychiatry. 6. H/O Anemia. Hgb WNL. 7. Leukocytosis. Pt is afebrile. Asymptomatic. Recheck CBC in AM. 8. Staff member Lis HARDY present throughout exam. Vital Signs Vital Signs Date Time Temp Pulse Resp B/P (MAP) Pulse Ox O2 Delivery O2 Flow Rate FiO2 06/16/18 14:08 82 18 137/86 (103) 94 06/16/18 09:29 96.8 Room Air Laboratory Data Labs 24H Laboratory Tests 2 06/16/18 10:01: Nucleated Red Blood Cells % (auto) 0.0, Anion Gap 12, Glomerular Filtration Rate > 60.0, Calcium Level 8.6, Aspartate Amino Transf (AST/SGOT) 20, Alanine Aminotransferase (ALT/SGPT) 42, Alkaline Phosphatase 118H, Total Bilirubin 0.2, Direct Bilirubin < 0.1, Total Protein 6.5, Albumin 3.5, Albumin/Globulin Ratio 1.17, Thyroid Stimulating Hormone (TSH) 3.410, Human Chorionic Gonadotropin, Qual NEGATIVE, Salicylates Level < 1.7L, Urine Amphetamines Screen NEGATIVE, Urine Benzodiazepines Screen POSITIVEH, Urine Opiates Screen NEGATIVE, Urine Methadone Screen NEGATIVE, Acetaminophen Level < 2.0L, Urine Barbiturates Screen NEGATIVE, Urine Phencyclidine Screen NEGATIVE, Urine Cocaine Metabolite Screen NEGATIVE, Urine Cannabinoids Screen POSITIVEH, Ethyl Alcohol Level < 0.003 CBC/BMP Laboratory Tests 06/16/18 10:01 Red Blood Count 4.55, Mean Corpuscular Volume 91.4, Mean Corpuscular Hemoglobin 31.4, Mean Corpuscular Hemoglobin Concent 34.4, Red Cell Distribution Width 12.7 Home Medications Scheduled (Risperidone) 1 Mg Tab, 1 MG PO QHS Buspirone HCl (Buspirone HCl) 5 Mg Tab, 10 MG PO BID Citalopram Hydrobromide (Citalopram Hydrobromide) 20 Mg Tab, 20 MG PO QHS Cyanocobalamin (Vitamin B 12) 100 Mcg Laxmi, 100 MCG PO DAILY Ferrous Sulfate (Iron (Ferrous Sulfate)) 50 Mg Tab, 50 MG PO DAILY Pantoprazole Sodium (Pantoprazole Sodium) 40 Mg Tab, 40 MG PO DAILY Allergies Coded Allergies: Penicillins (Verified Allergy, Severe, quit breathing, 02/27/17) Joelle Denton Jun 16, 2018 15:21
[2018-06-16] MEDS: PANTOPRAZOLE 40MG TAB (PROTONIX) PO SCH (15:42)
[2018-06-16 15:48] VITALS: BP 142/93
[2018-06-16] MEDS: ACETAMINOPHEN TAB 650MG DOSE (2X325MG) PO PRN (17:54)
[2018-06-17 06:42] VITALS: BP 128/58
[2018-06-17 07:57] LABS: HEMATOCRIT 43.4 % (36.0-47.0); MEAN CORPUSCULAR HEMOGLOBIN 31.4 pg (27.0-33.0); MEAN CORPUSCULAR HGB CONC 34.6 g/dl (32.0-36.5); MEAN CORPUSCULAR VOLUME 90.8 fl (80.0-96.0); PLATELET COUNT, AUTOMATED 216 10^3/uL (150-450); RED BLOOD COUNT 4.78 10^6/uL (4.00-5.40); WHITE BLOOD COUNT 9.7 10^3/uL (4.0-10.0)
[2018-06-17] MEDS: PANTOPRAZOLE 40MG TAB (PROTONIX) PO SCH (09:27)
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
[2018-06-17 18:00] VITALS: BP 130/89
[2018-06-17] MEDS: QUEtiapine FUMARATE 25 MG TAB PO SCH (21:41)
[2018-06-18 06:28] VITALS: BP 124/73
--- NOTE | 2018-06-18 08:13 | ECGEPIP ---
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
[2018-06-18] MEDS: SERTRALINE HCL 50 MG TAB PO SCH (08:20)
[2018-06-18] MEDS: PANTOPRAZOLE 40MG TAB (PROTONIX) PO SCH (08:21)
[2018-06-18] MEDS: CHLORHEXIDINE GLUCONATE 0.12 % 15ML UDC (PERIDEX ORAL RINSE) SSP SCH ×2 (10:24→21:33)
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
[2018-06-18 11:13] LABS: HEPATITIS A ANTIBODY IGM NEGATIVE (NEGATIVE); HEPATITIS B CORE ANTIBODY IGM NEGATIVE (NEGATIVE); HEPATITIS B SURFACE ANTIGEN NEGATIVE (NEGATIVE); HEPATITIS C VIRUS ABY INDEX 0.1 INDEX (<0.8); HIV 1&2 SCREEN CENTAUR NEGATIVE (NEGATIVE)
[2018-06-18] MEDS: ACETAMINOPHEN TAB 650MG DOSE (2X325MG) PO PRN (13:19)
[2018-06-18 18:00] VITALS: BP 126/74
[2018-06-18] MEDS: busPIRone 10 MG TAB PO SCH (21:33)
[2018-06-18] MEDS: QUEtiapine FUMARATE 25 MG TAB PO SCH (21:33)
[2018-06-19 06:20] VITALS: BP 149/85
[2018-06-19] MEDS: busPIRone 10 MG TAB PO SCH ×2 (08:28→22:51)
[2018-06-19] MEDS: SERTRALINE HCL 50 MG TAB PO SCH (08:28)
[2018-06-19] MEDS: PANTOPRAZOLE 40MG TAB (PROTONIX) PO SCH (08:28)
[2018-06-19] MEDS: CHLORHEXIDINE GLUCONATE 0.12 % 15ML UDC (PERIDEX ORAL RINSE) SSP SCH ×2 (08:29→22:51)
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
[2018-06-19] MEDS: ACETAMINOPHEN TAB 650MG DOSE (2X325MG) PO PRN (14:19)
[2018-06-19 18:00] VITALS: BP 146/93
[2018-06-19] MEDS: QUEtiapine FUMARATE 25 MG TAB PO SCH (22:51)
[2018-06-20 06:07] VITALS: BP 154/92
[2018-06-20] MEDS: CHLORHEXIDINE GLUCONATE 0.12 % 15ML UDC (PERIDEX ORAL RINSE) SSP SCH (08:02)
[2018-06-20] MEDS: PANTOPRAZOLE 40MG TAB (PROTONIX) PO SCH (08:02)
[2018-06-20] MEDS: SERTRALINE HCL 50 MG TAB PO SCH (08:03)
[2018-06-20] MEDS: busPIRone 10 MG TAB PO SCH (08:03)
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
[2018-06-20] MEDS ORDERED: ABIL10TA9 PO (08:55)
[2018-06-20] MEDS ORDERED: BUSP10TA PO (08:55)
[2018-06-20] MEDS ORDERED: QUET1TAB7 PO (08:55)
[2018-06-20] MEDS ORDERED: SERT50TA PO (08:55)
== END 2018-06-20 12:00 | disposition home or self-care (01) | DRG 753 ==
LOC: M ED 09:28 → M ED INP 13:56 → M PSY 14:47
PROVIDERS: ADMIT Psychiatry & Neurology Psychiatry; ATTEND Psychiatry & Neurology Psychiatry
DX: F31.81 Bipolar II disorder (principal); F12.10 Cannabis abuse, uncomplicated; F43.10 Post-traumatic stress disorder, unspecified; F60.3 Borderline personality disorder; Z62.810 Personal history of physical and sexual abuse in childhood; Z81.1 Family history of alcohol abuse and dependence; Z81.8 Family history of other mental and behavioral disorders; Z79.899 Other long term (current) drug therapy; Z88.0 Allergy status to penicillin; K21.9 Gastro-esophageal reflux disease without esophagitis; F19.10 Other psychoactive substance abuse, uncomplicated

== ENCOUNTER 2018-06-16 11:00 | Outpatient (RCR) | payer MEDICAID ==
[~2018-06-16 11:00] MED LIST changes: +BUSP5TA PO; +CITA20TA4 PO; +IRON27TA2 PO; +PANT40TA3 PO; +RISP1TAB3 PO; +VITA100L PO
[2018-06-16] MEDS ORDERED: IRON50TA PO (14:28)
[2018-06-20] MEDS ORDERED: ABIL10TA9 PO (08:55)
[2018-06-20] MEDS ORDERED: SERT50TA PO (08:55)
[2018-06-20] MEDS ORDERED: BUSP10TA PO (08:55)
[2018-06-20] MEDS ORDERED: QUET1TAB7 PO (08:55)
== END 2018-07-03 ==
LOC: M OUTALCOH 11:00
PROVIDERS: ATTEND Psychiatry & Neurology Psychiatry
DX: F10.20 Alcohol dependence, uncomplicated (principal); F12.20 Cannabis dependence, uncomplicated; F11.20 Opioid dependence, uncomplicated

== ENCOUNTER 2020-03-02 08:07 | Emergency (ER) | payer MEDICAID, SELFPAY ==
[~2020-03-02] VITALS: Ht 152.4 cm; Wt 97.0 kg
[~2020-03-02 08:07] MED LIST changes: +ABIL10TA9 PO; +BUSP10TA PO; -CITA20TA4 PO; +CITA20TA6 PO; +IRON50TA PO; +PANT40TA29 PO; -PANT40TA3 PO; +QUET1TAB7 PO; +SERT-141 PO
[2020-03-02] MEDS ORDERED: NS 1,000 ML IV ONE (09:00)
[2020-03-02 09:36] LABS: BASO # 0.1 10^3/uL (0.0-0.2); BASO % 0.4 % (0.0-1.0); EOS # 0.3 10^3/uL (0.0-0.5); EOS % 1.9 % (0.0-3.0); HEMATOCRIT 45.3 % (36.0-47.0); HEMOGLOBIN 15.3 g/dl (12.0-15.5); LYMPH # 4.3 10^3/uL (1.5-5.0); LYMPH % 32.3 % (24.0-44.0); MEAN CORPUSCULAR HEMOGLOBIN 30.1 pg (27.0-33.0); MEAN CORPUSCULAR HGB CONC 33.8 g/dl (32.0-36.5); MONO # 0.9 10^3/uL (0.0-0.8); MONO % 6.8 % (0.0-5.0); NEUTROPHILS # 7.8 10^3/uL (1.5-8.5); NEUTROPHILS % 58.2 % (36.0-66.0); PLATELET COUNT, AUTOMATED 272 10^3/uL (150-450); RED BLOOD COUNT 5.09 10^6/uL (4.00-5.40); WHITE BLOOD COUNT 13.4 10^3/uL (4.0-10.0)
[2020-03-02 10:07] LABS: ALBUMIN 3.5 GM/DL (3.2-5.2); ALT/SGPT 33 U/L (12-78); BILIRUBIN,DIRECT < 0.1 MG/DL (0.0-0.2); BILIRUBIN,TOTAL 0.3 MG/DL (0.2-1.0); LIPASE 180 U/L (73-393); TOTAL PROTEIN 6.6 GM/DL (6.4-8.2)
--- NOTE | 2020-03-02 10:12 | REPVR ---
PROCEDURE INFORMATION: Exam: CT Abdomen And Pelvis Without Contrast Exam date and time: 03/02/2020 9:46 AM Age: 34 years old Clinical indication: Abdominal pain; Flank; Other: B/l; Additional info: Low back pain, hematuria, h/o kidney stones TECHNIQUE: Imaging protocol: Computed tomography of the abdomen and pelvis without contrast. Radiation optimization: All CT scans at this facility use at least one of these dose optimization techniques: automated exposure control; mA and/or kV adjustment per patient size (includes targeted exams where dose is matched to clinical indication); or iterative reconstruction. COMPARISON: CT ABD PELVIS W/O CONTRAST 02/27/2017 3:52 AM FINDINGS: Detailed evaluation of the abdominal and pelvic viscera is somewhat limited in the absence of intravenous contrast. Pleural space: No acute airspace or pleural disease. Liver: Fatty infiltration of the liver. Gallbladder and bile ducts: Contracted gallbladder. No biliary ductal dilatation. Pancreas: No pancreatic mass or ductal dilatation. Spleen: No splenomegaly. Adrenals: Unremarkable adrenals. Kidneys and ureters: 1 and 2 mm nonobstructing right renal calculi. Mild right hydronephrosis in association with a 3 mm right UPJ calculus. Stomach and bowel: No significant small bowel dilatation. Prominent stool. Diverticula, without pericolonic inflammation. Appendix: No acute appendicitis. Intraperitoneal space: No significant free fluid. Vasculature: Normal caliber of the abdominal aorta. Pelvic vascular calcifications. Lymph nodes: Subcentimeter lymph nodes. Urinary bladder: Normal bladder morphology. Reproductive: Tubal ligation. 12 mm left ovarian follicle. Bones/joints: Spina bifida occulta. Soft tissues: Infiltration of subcutaneous fat about the umbilicus. IMPRESSION: 1.1 and 2 mm nonobstructing right renal calculi. 2. Mild right hydronephrosis in association with a 3 mm right UPJ calculus. 3. Additional findings as described above. Electronically signed by: Ricky Mann On 03/02/2020 10:11:55 AM
[2020-03-02] MEDS ORDERED: KETOROLAC 30 MG/ML 1ML VIAL IV ONE (10:15)
[2020-03-02] MEDS ORDERED: KETO10TAB PO (10:41)
[2020-03-02] MEDS ORDERED: FLOM0.4C39 PO (10:41)
[2020-03-02 10:46] VITALS: BP 123/86
== END 2020-03-02 10:54 | disposition home or self-care (01) ==
LOC: M ED 08:07
DX: N13.2 Hydronephrosis with renal and ureteral calculous obstruction (principal); F41.9 Anxiety disorder, unspecified; F31.9 Bipolar disorder, unspecified; F17.200 Nicotine dependence, unspecified, uncomplicated; Z88.0 Allergy status to penicillin; Z87.442 Personal history of urinary calculi; Z87.440 Personal history of urinary (tract) infections
CPT/HCPCS: 74176; 80047; 80076; 81001; 83690; 84702; 85025; 96361; 96374; 99284; J1885

== ENCOUNTER 2020-03-04 11:40 | Day surgery (SDC) | payer SELFPAY ==
[~2020-03-04] VITALS: Ht 152.4 cm; Wt 90.5 kg
[~2020-03-04 11:40] MED LIST changes: +KETO10TAB PO
[2020-03-04 12:23] LABS: BASO # 0.1 10^3/uL (0.0-0.2); BASO % 0.4 % (0.0-1.0); EOS # 0.2 10^3/uL (0.0-0.5); EOS % 1.3 % (0.0-3.0); HEMATOCRIT 45.6 % (36.0-47.0); HEMOGLOBIN 15.3 g/dl (12.0-15.5); LYMPH # 3.2 10^3/uL (1.5-5.0); LYMPH % 27.1 % (24.0-44.0); MEAN CORPUSCULAR HEMOGLOBIN 29.7 pg (27.0-33.0); MEAN CORPUSCULAR HGB CONC 33.6 g/dl (32.0-36.5); MEAN CORPUSCULAR VOLUME 88.5 fl (80.0-96.0); MONO # 0.7 10^3/uL (0.0-0.8); MONO % 6.1 % (0.0-5.0); NEUTROPHILS # 7.6 10^3/uL (1.5-8.5); NEUTROPHILS % 64.8 % (36.0-66.0); PLATELET COUNT, AUTOMATED 278 10^3/uL (150-450); RED BLOOD COUNT 5.15 10^6/uL (4.00-5.40); WHITE BLOOD COUNT 11.8 10^3/uL (4.0-10.0)
[2020-03-04 12:26] LABS: BILIRUBIN, URINE MANUAL NEGATIVE (NEGATIVE); GLUCOSE, URINE (UA) MANUAL NEGATIVE (NEGATIVE); KETONE, URINE MANUAL NEGATIVE (NEGATIVE); UROBILINOGEN, URINE MANUAL NORMAL (NORMAL)
[2020-03-04 12:28] LABS: INR 0.92; PROTHROMBIN TIME 12.5 SECONDS (12.5-14.3)
[2020-03-04 12:29] LABS: PARTIAL THROMBOPLASTIN TIME 27.7 SECONDS (24.2-38.5)
[2020-03-04 12:37] LABS: BACTERIA, URINE MOD AMOUNT; MUCUS, URINE SMALL AMOUNT (NEGATIVE); RBC, URINE TNTC /hpf (0-3); SQUAMOUS EPITHELIAL CELL URINE MOD AMOUNT /hpf (SMALL AMT)
[2020-03-04] MEDS ORDERED: ONDANSETRON 4MG/2ML VIAL IV ONE (12:45)
[2020-03-04] MEDS ORDERED: MORPHINE 4 MG/ML 1ML VIAL/SYRINGE (J2270) IV ONE (12:45)
[2020-03-04] MEDS ORDERED: NS 1,000 ML IV ONE (12:45)
[2020-03-04 12:52] LABS: ALBUMIN 3.7 GM/DL (3.2-5.2); BILIRUBIN,DIRECT 0.2 MG/DL (0.0-0.2); BILIRUBIN,TOTAL 0.6 MG/DL (0.2-1.0); TOTAL PROTEIN 6.9 GM/DL (6.4-8.2)
--- NOTE | 2020-03-04 13:58 | REPVR ---
PROCEDURE INFORMATION: Exam: US Retroperitoneal Limited, Kidneys Exam date and time: 03/04/2020 1:10 PM Age: 34 years old Clinical indication: Abdominal pain; Additional info: Right kidney stone, pain increased now with n/v TECHNIQUE: Imaging protocol: Real-time ultrasound of the retroperitoneum with image documentation. Examination was focused on the kidneys. COMPARISON: 1. RENAL US 10/07/2017 11:[address] ABD PELVIS W/O CONTRAST 03/02/2020 9:40:47 AM FINDINGS: Right kidney: The right kidney is normal in size. It is 10.3 x 4.6 x 6.0 cm. Two 2-3 mm echogenic foci at the mid and lower right kidney are consistent with nonobstructing stones. There is no solid right renal mass or cortical loss. There is mild right hydronephrosis. There is increased renal sinus fat. Resistive index is normal, 0.61. Left kidney: The left kidney is normal in size. It is 13.0 x 5.2 x 5.3 cm. There is no stone, solid left renal mass, cortical loss or hydronephrosis. There is increased renal sinus fat. Resistive index is normal, 0.60. Bladder: Urinary bladder is empty and cannot be evaluated. Uterus: The uterus is anteverted and grossly unremarkable. IMPRESSION: 1. Two nonobstructing 2-3 mm stones at the mid and lower right kidney. 2. Mild right hydronephrosis. 3. The 5 x 5 x 5 mm stone, which was at the right ureteropelvic junction on the CT 2 days ago, is not visualized. Clinically indicated, a noncontrast CT may be helpful to determine its current location. Electronically signed by: Tayo Ma On 03/04/2020 13:58:27 PM
--- NOTE | 2020-03-04 14:49 | REPVR ---
PROCEDURE INFORMATION: Exam: CT Abdomen And Pelvis Without Contrast Exam date and time: 03/04/2020 2:06 PM Age: 34 years old Clinical indication: Pain and condition or disease; Kidney or ureter condition; Calculus (stone) in ureter; Abdominal pain; Additional info: Kidney stone with increased pain TECHNIQUE: Imaging protocol: Computed tomography of the abdomen and pelvis without contrast. Radiation optimization: All CT scans at this facility use at least one of these dose optimization techniques: automated exposure control; mA and/or kV adjustment per patient size (includes targeted exams where dose is matched to clinical indication); or iterative reconstruction. COMPARISON: CT ABD PELVIS W/O CONTRAST 03/02/2020 9:40 AM FINDINGS: Limitations: Large body habitus causes unavoidable image degradation. Liver: Normal. No mass. Gallbladder and bile ducts: Normal. No calcified stones. No ductal dilation. Pancreas: Normal. No ductal dilation. Spleen: Normal. No splenomegaly. Adrenals: Normal. No mass. Kidneys and ureters: Since the comparison CT 2 days ago, the right ureteral stone, 5 x 5 x 5 mm, has progressed only 1.2 cm distally from its previous location at the ureteropelvic junction. Mild right hydronephrosis is worse. The right renal pelvis is 18 mm (previously 12 mm). Three nonobstructing stones in the right kidney are 2-3 mm. The left kidney and ureter are normal. Stomach and bowel: The stomach and duodenum are unremarkable. The small bowel is normal in caliber without wall thickening. The colon is unremarkable. There is no acute colonic distention, diverticulosis or inflammation. Appendix: No evidence of appendicitis. Intraperitoneal space: No free air or free fluid in the abdomen or pelvis. Vasculature: Unremarkable. No abdominal aortic aneurysm. Lymph nodes: Unremarkable. No enlarged lymph nodes. Urinary bladder: Unremarkable as visualized. Reproductive: There are bilateral fallopian tube occlusion devices. The uterus is anteverted and normal in size. No ovarian or adnexal pathology is noted. Bones/joints: Unremarkable. No acute fracture. Soft tissues: Unremarkable. IMPRESSION: 1. Since the comparison CT 2 days ago, the right ureteral stone, 5 x 5 x 5 mm, has progressed only 1.2 cm distally from its previous location at the ureteropelvic junction. 2. Mild right hydronephrosis is worse. The right renal pelvis is 18 mm (previously 12 mm). 3. Stable nonobstructive right nephrolithiasis. Electronically signed by: Tayo Ma On 03/04/2020 14:48:55 PM
[2020-03-04] MEDS ORDERED: CONRAY-60 60% 50ML VIAL (Q9961) As Ordered ONE (17:33)
[2020-03-04] MEDS ORDERED: OXYB5TAB10 PO (18:01)
[2020-03-04] MEDS ORDERED: OXYC1TAB23 PO (18:01)
--- NOTE | 2020-03-04 18:07 | SMCUROLCON ---
Urology Consultation General Date of Consultation 03/04/20 Reason For Consultation This patient is seen for Urinary Problem. History of Present Illness This is a 34 y/o F w/ a PMH significant for kidney stones, presenting to the ER the second time this week for R flank pain and n/v. She notes that this wor sened this morning. She has also had hematuria. On CT A/P today, she has worsened R hydronephrosis due to a 6mm proximal R UPJ stone. She also has a small nonobstructing stone in the R kidney. She denies dysuria or fevers. Past Medical History Medical History kidney stones Surgical Hstory tubal ligation Medications Current Medications Current Medications Medications (Trade) Dose Ordered Sig/Win Route PRN Reason Start Time Stop Time Status Last Admin Dose Admin Home Med (Med Rec Complete!) ASDIRECTED XX 03/04/20 16:45 03/04/20 16:44 DC Allergies Allergies: Coded Allergies: Penicillins (Verified Allergy, Unknown, 03/02/20) Review of Systems Constitutional: Denies: Fever, Chills, Sweats, Weakness, Malaise Pulmonary: Denies: Dyspnea, Cough Cardiovascular: Denies Chest Pain, Denies Palpitations Gastrointestinal: Reports: Nausea, Vomiting Genitourinary: Reports: Hematuria; Denies: Dysuria, Frequency, Incontinence Musculoskeletal: Reports: Back Pain (right flank) Psych: Reports: Mood Normal Physical Examination General Exam: Alert, Cooperative, No Acute Distress Chest Exam: Normal air movement Heart Exam: Rate Normal Abdomen Exam: Soft Skin Exam: Nl turgor and temperature Neuro Exam: Normal Speech Psych Exam: Mental status NL, Mood NL Vital Signs/I&O Vital Signs Date Time Temp Pulse Resp B/P (MAP) Pulse Ox O2 Delivery O2 Flow Rate FiO2 03/04/20 17:01 97.1 62 18 119/78 (92) 98 Room Air Laboratory Data 24H Labs Laboratory Tests 2 03/04/20 12:02: Immature Granulocyte % (Auto) 0.3, Neutrophils (%) (Auto) 64.8, Lymphocytes (%) (Auto) 27.1, Monocytes (%) (Auto) 6.1H, Eosinophils (%) (Auto) 1.3, Basophils (%) (Auto) 0.4, Neutrophils # (Auto) 7.6, Lymphocytes # (Auto) 3.2, Monocytes # (Auto) 0.7, Eosinophils # (Auto) 0.2, Basophils # (Auto) 0.1, Nucleated Red Blood Cells % (auto) 0.0, Prothrombin Time 12.5, Prothromb Time International Ratio 0.92, Activated Partial Thromboplast Time 27.7, Urine Color (TOMMY) DK YELLOW, Urine Appearance (TOMMY) HAZYH, Urine pH (TOMMY) 1.025, Urine Specific [place] (TOMMY) 5.000H, Bedside Urine Glucose (UA) NEGATIVE, Bedside Urine Ketones (LAB) NEGATIVE, Bedside Urine Blood POSITIVEH, Bedside Urine Nitrite (LAB) NEGATIVE, Bedside Urine Bilirubin (LAB) NEGATIVE, Bedside Urine Urobilinogen (LAB) NORMAL, Bedside Urine Leukocyte Esterase (L NEGATIVE, Urine Sediment Examination PERFORMED, Urine RBC TNTCH, Urine WBC 5-7H, Urine Squamous Epithelial Cells MOD AMOUNTH, Urine Bacteria MOD AMOUNTH, Urine Hyaline Casts , Urine Mucus SMALL AMOUNTH, Lactic Acid Level 0.6, Total Bilirubin 0.6#, Direct Bilirubin 0.2, Aspartate Amino Transf (AST/SGOT) 18, Alanine Aminotransferase (ALT/SGPT) 38, Alkaline Phosphatase 113, Total Protein 6.9, Albumin 3.7, Albumin/Globulin Ratio 1.2, Amylase Level 41, Lipase 111 03/04/20 12:13: POC Glucose (Misc Panel) 92, POC Sodium (Misc Panel) 142, POC Potassium (Misc Panel) 3.8, POC Chloride (Misc Panel) 102, POC Total CO2 (Misc Panel) 25.0, POC Blood Urea Nitrogen (Misc Panel 6L, POC Ionized Calcium (Misc Panel) 5.0, POC Creatinine (Misc Panel) 0.5L, POC Hematocrit (Misc Panel) 45.0 03/04/20 12:17: POC Beta HCG, Quantitative < 5.0 03/04/20 16:13: Coronavirus (COVID-19)(PCR) NEGATIVE CBC/BMP Laboratory Tests 03/04/20 12:02 Microbiology Microbiology 03/04/20 Blood Culture, Received Pending 03/04/20 Blood Culture, Received Pending Assessment This is a 34 y/o F presenting to the ER for the second time this week for R flank pain 2/2 an obstructing R ureteral stone. Due to worsening hydro and poor pain control, I recommended that we take her to the OR this evening for cystoscopy, R ureteroscopy w/ laser lithotripsy, and R ureteral stent placement. After a discussion of the risks and benefits of the procedure, informed consent was signed. Plan - to OR now - levaquin 500mg IV OCOR - NPO - likely discharge home postop if pain is improved BA SILVESTRE MD Mar 04, 2020 17:24
[2020-03-04] MEDS ORDERED: LevoFLOXacin 500MG/100ML IV BAG (J1956 PER 250MG) As Ordered ONE (18:26)
[2020-03-04] MEDS ORDERED: LevoFLOXacin IV 500 MG in IV 1 EA IV ONE (18:30)
[2020-03-04] MEDS ORDERED: LIDOCAINE 2% 100MG/5ML SDV (FOR ANES.) As Ordered ONE (18:58)
[2020-03-04] MEDS ORDERED: fentaNYL 100 MCG/2 ML INJECTION (J3010) As Ordered ONE (18:58)
[2020-03-04] MEDS ORDERED: propofoL 200 MG/20 ML VIAL As Ordered ONE (18:58)
[2020-03-04] MEDS ORDERED: dexameTHASONE 4 MG/ML 1ML VIAL (J1100 PER 1MG) As Ordered ONE (18:58)
[2020-03-04] MEDS ORDERED: MIDAZOLAM INJ 2MG/2ML VIAL (J2250 PER 1MG) As Ordered ONE (18:58)
[2020-03-04] MEDS ORDERED: ONDANSETRON 4MG/2ML VIAL As Ordered ONE (18:58)
[2020-03-04 20:23] VITALS: BP 131/82
[2020-03-04] MEDS ORDERED: PERCOCET 5MG/325MG TAB PO PRN (20:30)
[2020-03-04] MEDS ORDERED: ONDANSETRON 4MG/2ML VIAL IV PRN (20:30)
[2020-03-04] MEDS ORDERED: LR 1,000 ML IV SCH (20:30)
[2020-03-04] MEDS ORDERED: METOCLOPRAMIDE INJ 10MG/2ML VIAL (J2765 PER 1) IV PRN (20:30)
[2020-03-04] MEDS ORDERED: oxyBUTYnin 5 MG TAB PO PRN (20:30)
[2020-03-04] MEDS ORDERED: fentaNYL 100 MCG/2 ML INJECTION (J3010) IV PRN (20:30)
[2020-03-04] MEDS ORDERED: oxyCODONE 5MG TAB PO PRN (20:30)
[2020-03-04] MEDS ORDERED: MEPERIDINE INJ 25 MG/ML VIAL (J2175) IV PRN (20:30)
--- NOTE | 2020-03-09 08:34 | RO ---
DATE OF OPERATION: 03/04/2020 PREOPERATIVE DIAGNOSIS: Right kidney stones. POSTOPERATIVE DIAGNOSIS: Right kidney stones. PROCEDURE: Cystoscopy, right ureteroscopy with basket extraction of stones, right retrograde pyelogram with intraoperative interpretive images, right ureteral stent placement. SURGEON: Yovanny Madrid MD MACHINE VENEER REPAIRER: None. ANESTHESIA: General. OPERATIVE INDICATIONS: This is a 34-year-old female who has come back to the emergency room for the second time this week for right flank pain from an obstructing proximal right ureteral stone. It was recommended she be brought to the operating room today for treatment. DESCRIPTION OF PROCEDURE: The patient was brought to the operating room and general anesthesia was induced. Prophylactic antibiotics were infused. She was then placed in the dorsal lithotomy position, prepped and draped in the usual sterile fashion. At this point, a rigid cystoscope was inserted in the urethral meatus and advanced into the bladder. A guidewire was advanced up the right collecting system. I then advanced a ureteral access sheath over the wire. I went up the access sheath with the flexible ureteroscope and within the proximal ureter a 6 mm stone was seen. The stone was grasped with the basket and withdrawn completely. I then went back in the access sheath and into the ureter. No other stones were seen inside the ureter. I then examined the kidney thoroughly and only an approximately 3 mm stone was seen in the lower pole calyx. The stone was removed with the basket. Once I confirmed no other stones remained, a retrograde pyelogram was performed and was notable for mild right hydronephrosis with no extravasation. I then withdrew the ureteroscope along with the access sheath and no additional stones were seen. I then utilized the guidewire to advance a 6- [place] x 22-32 cm JJ ureteral stent up the right collecting system. The wire was removed and there were adequate curls of the stent in the right renal pelvis and in the bladder. The bladder was then emptied of all fluids, and this marked the conclusion of the procedure. The patient was then taken out of the dorsal lithotomy position, awakened from anesthesia, and transported to the recovery room in stable condition. ESTIMATED BLOOD LOSS: 5 mL. COMPLICATIONS: None. SPECIMEN: Kidney stones. PLAN: The patient will follow up in the urology clinic in approximately 1-2 weeks for stent removal. ALEX
--- NOTE | 2020-03-14 10:22 | REP ---
SPOT VIEWS OBTAINED DURING DOUBLE PIGTAIL STENT PLACEMENT ON THE RIGHT Two spot views of the abdomen were obtained in my absentia. Five seconds of fluoroscopy time was provided Dr. Yovanny Madrid for the exam. FINDINGS: There is a double pigtail stent seen in the right renal collecting system, the proximal portion of which is in the renal pelvis and the distal portion of which is in the urinary bladder region on the right. MTDD
[2020-03-16 21:08] LABS: CA Oxalate Dihy 30 % (.); Ca Ox Monohydrate 50 % (.); Size 5x5 mm (.)
== END 2020-03-04 20:43 | disposition home or self-care (01) ==
LOC: M ED 11:40 → M SDC 17:30
PROVIDERS: ATTEND Urology
DX: N20.0 Calculus of kidney (principal); F41.9 Anxiety disorder, unspecified; F32.9 Major depressive disorder, single episode, unspecified; F17.218 Nicotine dependence, cigarettes, with other nicotine-induced disorders; Z79.899 Other long term (current) drug therapy
CPT/HCPCS: 52332; 52352; 74176; 74420; 76775; 80047; 80076; 81000; 82150; 82365; 83605; 83690; 84702; 85025; 85610; 85730; 87040; 88300; 96361; 96374; 96375; 99284; C1769; C2617; J1100; J1956; J2250; J2270; J2405; J3010; Q9961; U0002

== ENCOUNTER 2020-03-10 12:08 | Emergency (ER) | payer SELFPAY ==
[~2020-03-10] VITALS: Ht 152.4 cm; Wt 91.2 kg
[~2020-03-10 12:08] MED LIST changes: +OXYB5TAB10 PO; +OXYC1TAB23 PO
[2020-03-10 13:14] LABS: BILIRUBIN, URINE MANUAL NEGATIVE (NEGATIVE); GLUCOSE, URINE (UA) MANUAL NEGATIVE (NEGATIVE); KETONE, URINE MANUAL NEGATIVE (NEGATIVE); UROBILINOGEN, URINE MANUAL NORMAL (NORMAL)
[2020-03-10 13:33] LABS: RBC, URINE TNTC /hpf (0-3)
[2020-03-10] MEDS ORDERED: ISOVUE-370 76% 100ML VIAL As Ordered ONE (13:34)
[2020-03-10 13:35] LABS: SQUAMOUS EPITHELIAL CELL URINE SMALL AMOUNT /hpf (SMALL AMT)
[2020-03-10 13:36] LABS: BACTERIA, URINE MOD AMOUNT
[2020-03-10 13:41] LABS: BASO % 0.3 % (0.0-1.0); EOS # 0.2 10^3/uL (0.0-0.5); EOS % 1.4 % (0.0-3.0); HEMOGLOBIN 14.4 g/dl (12.0-15.5); LYMPH # 3.4 10^3/uL (1.5-5.0); LYMPH % 25.4 % (24.0-44.0); MEAN CORPUSCULAR HEMOGLOBIN 30.1 pg (27.0-33.0); MEAN CORPUSCULAR HGB CONC 33.5 g/dl (32.0-36.5); MEAN CORPUSCULAR VOLUME 89.8 fl (80.0-96.0); MONO # 0.9 10^3/uL (0.0-0.8); MONO % 6.8 % (0.0-5.0); NEUTROPHILS # 8.8 10^3/uL (1.5-8.5); NEUTROPHILS % 65.7 % (36.0-66.0); PLATELET COUNT, AUTOMATED 245 10^3/uL (150-450); RED BLOOD COUNT 4.79 10^6/uL (4.00-5.40); WHITE BLOOD COUNT 13.3 10^3/uL (4.0-10.0)
[2020-03-10] MEDS ORDERED: NS 1,000 ML IV ONE (14:00)
[2020-03-10] MEDS ORDERED: MORPHINE 2 MG/ML 1ML VIAL (J2270) IV ONE (14:00)
[2020-03-10] MEDS ORDERED: ONDANSETRON 4MG/2ML VIAL IV ONE (14:00)
[2020-03-10 14:11] LABS: ALBUMIN 3.5 GM/DL (3.2-5.2); ALT/SGPT 29 U/L (12-78); BILIRUBIN,DIRECT < 0.1 MG/DL (0.0-0.2); BILIRUBIN,TOTAL 0.2 MG/DL (0.2-1.0); LIPASE 143 U/L (73-393); TOTAL PROTEIN 6.4 GM/DL (6.4-8.2)
--- NOTE | 2020-03-10 14:31 | REPVR ---
PROCEDURE INFORMATION: Exam: CT Abdomen And Pelvis Without And With Contrast; Urography Exam date and time: 03/10/2020 1:06 PM Age: 34 years old Clinical indication: Other: Large gross hematuria; Prior surgery; Surgery date: 3-7 days post-operative; Surgery type: Right stent; Additional info: Per urology, renal stent on R, large gross hematuria TECHNIQUE: Imaging protocol: Computed tomography of the abdomen and pelvis without and with intravenous contrast. Exam focused on the kidneys and ureters. Radiation optimization: All CT scans at this facility use at least one of these dose optimization techniques: automated exposure control; mA and/or kV adjustment per patient size (includes targeted exams where dose is matched to clinical indication); or iterative reconstruction. Contrast material: ISOVUE 370; Contrast volume: 100 ml; Contrast route: INTRAVENOUS (IV); COMPARISON: 1. CT ABD PELVIS W/O CONTRAST 03/04/2020 2:[address] ABD PELVIS W/O CONTRAST 07/19/2016 10:59:07 AM FINDINGS: Lungs: Noncalcified 3 mm right lower lobe pulmonary nodule (series 202, image 8). This nodule was present in 2017 and warrants no follow-up imaging. Liver: 7 mm hypodense subcapsular right hepatic lobe lesion is too small to definitively characterize, but likely represents a cyst. Gallbladder and bile ducts: Normal. No calcified stones. No ductal dilation. Pancreas: Normal. No ductal dilation. Spleen: Normal. No splenomegaly. Adrenals: Normal. No mass. Kidneys and ureters: Double-J right ureteral stent appears appropriately positioned. Moderate right-sided hydronephrosis. Mild distension of the proximal and mid right ureter. No appreciable right ureteral calculus. Mild scarring of the upper pole of the right kidney. Stomach and bowel: Normal. No obstruction. No mucosal thickening. Intraperitoneal space: Unremarkable. No free air. No significant fluid collection. Lymph nodes: Unremarkable. No enlarged lymph nodes. Vasculature: Mild atherosclerotic changes. Retroaortic left renal vein, congenital variant. Bladder: There is an irregularly shaped hypodense filling defect within the urinary bladder surrounding the distal end of the ureteral stent. This measures approximately 12 x 10 x 18 mm. Reproductive: Physiologic 2.0 cm left ovarian cyst. Patient appears to be status post tubal occlusion procedure. 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 Soft tissues: Unremarkable. IMPRESSION: The right ureteral stent appears appropriately positioned. There is no residual right ureteral calculus. Moderate right-sided hydronephrosis and mild distention of the proximal and mid right ureter, progressed since prior. Irregularly shaped filling defect within the urinary bladder adjacent to the distal end of the ureteral stent, most likely representing a blood clot or debris. Consider follow-up with bladder ultrasound. Electronically signed by: Jennifer Bautista On 03/10/2020 14:30:38 PM
[2020-03-10] MEDS ORDERED: CIPR-249 PO (14:52)
[2020-03-10] MEDS ORDERED: CIPROFLOXACIN 400 MG in IV 1 EA IV ONE (15:00)
[2020-03-10 15:45] VITALS: BP 132/87
--- NOTE | 2020-03-11 11:01 | ED PDOC ---
Post-Departure Follow-Up ct abd/p faxed formal report to dr white for fu Charles Henderson MD Mar 11, 2020 11:01
== END 2020-03-10 16:15 | disposition home or self-care (01) ==
LOC: M ED 12:08
DX: N39.0 Urinary tract infection, site not specified (principal); R31.9 Hematuria, unspecified; R91.1 Solitary pulmonary nodule; Z96.0 Presence of urogenital implants; N83.292 Other ovarian cyst, left side; F41.9 Anxiety disorder, unspecified; F32.9 Major depressive disorder, single episode, unspecified; Z79.899 Other long term (current) drug therapy; Z88.0 Allergy status to penicillin
CPT/HCPCS: 74178; 80047; 80076; 81000; 83690; 85025; 86850; 86900; 86901; 87086; 96365; 96375; 99283; J0744; J2270; J2405; Q9967

== ENCOUNTER → 2020-11-09 | Outpatient (REF) ==
[~2020-11-09] MED LIST changes: -QUET1TAB7 PO; +QUET25TA3 PO; +RISP-8 PO; -RISP1TAB3 PO
== END ==
LOC: M LAB 12:32
PROVIDERS: ATTEND Nurse Practitioner Family
DX: Z00.00 Encounter for general adult medical examination without abnormal findings (principal)

== ENCOUNTER 2021-05-20 10:55 | Emergency (ER) | payer OTHER, SELFPAY ==
[~2021-05-20] VITALS: Ht 152.4 cm; Wt 76.9 kg
[~2021-05-20 10:55] MED LIST changes: +QUET1TAB17 PO; -QUET25TA3 PO
[2021-05-20 11:57] LABS: BASO # 0.1 10^3/uL (0.0-0.2); BASO % 0.5 % (0.0-1.0); EOS # 0.1 10^3/uL (0.0-0.5); HEMATOCRIT 44.8 % (36.0-47.0); HEMOGLOBIN 15.2 g/dl (12.0-15.5); LYMPH # 3.5 10^3/uL (1.5-5.0); LYMPH % 30.5 % (24.0-44.0); MEAN CORPUSCULAR HEMOGLOBIN 29.7 pg (27.0-33.0); MEAN CORPUSCULAR HGB CONC 33.9 g/dl (32.0-36.5); MEAN CORPUSCULAR VOLUME 87.5 fl (80.0-96.0); MONO # 0.8 10^3/uL (0.0-0.8); MONO % 7.2 % (2.0-8.0); NEUTROPHILS % 60.4 % (36.0-66.0); PLATELET COUNT, AUTOMATED 280 10^3/uL (150-450); RED BLOOD COUNT 5.12 10^6/uL (4.00-5.40); WHITE BLOOD COUNT 11.5 10^3/uL (4.0-10.0)
[2021-05-20 12:27] LABS: HCG, SERUM QUALITATIVE NEGATIVE (NEGATIVE)
[2021-05-20 12:29] LABS: BLOOD UREA NITROGEN 8 MG/DL (7-18); CREATININE FOR GFR 0.58 MG/DL (0.55-1.30); GLUCOSE, FASTING 99 MG/DL (70-100)
[2021-05-20 12:30] LABS: ALBUMIN 3.9 GM/DL (3.2-5.2); ALT/SGPT 26 U/L (12-78); BILIRUBIN,DIRECT 0.1 MG/DL (0.0-0.2); BILIRUBIN,TOTAL 0.4 MG/DL (0.2-1.0); CALCIUM LEVEL 9.5 MG/DL (8.5-10.1); CARBON DIOXIDE LEVEL 26 MEQ/L (21-32); CHLORIDE LEVEL 109 MEQ/L (98-107); GLOMERULAR FILTRATION RATE > 60.0 (>60); LIPASE 173 U/L (73-393); POTASSIUM SERUM 4.5 MEQ/L (3.5-5.1); SODIUM LEVEL 140 MEQ/L (136-145)
[2021-05-20] MEDS ORDERED: KETOROLAC 30 MG/ML 1ML VIAL IV ONE (12:40)
[2021-05-20] MEDS ORDERED: ONDANSETRON 4MG/2ML VIAL IV ONE (12:40)
[2021-05-20] MEDS ORDERED: NS 1,000 ML IV ONE (12:40)
--- NOTE | 2021-05-20 13:05 | REP ---
INDICATION: right flank pain COMPARISON: 03/10/2020 TECHNIQUE: Axial noncontrast images from the lung bases to the pubic symphysis with coronal and sagittal reformations. This CT examination was performed using the following dose reduction techniques: Automated exposure control, adjustment of mA and/or kv according to the patient's size, and use of iterative reconstruction technique. FINDINGS: The kidneys are relatively normal although very subtle bilateral medullary nephrocalcinosis (right greater than left) without discrete nephrolith is suggested. There is no acute perinephric stranding, hydroureteronephrosis, or obstructing ureteral calculus. Previously noted right ureteral stent has been removed. Liver, spleen, pancreas, gallbladder, and bilateral adrenal glands are normal. The enteric system is unremarkable and without obstruction or acute inflammatory process. Normal terminal ileum and appendix identified in the right lower quadrant. Pelvis demonstrates normal bladder and age-appropriate uterus/adnexa. No ascites. No free air. No adenopathy. No focal inflammatory stranding. Abdominal aorta without aneurysm. Musculoskeletal structures are intact and without acute osseous abnormality. Lung bases are clear. IMPRESSION: No acute abdominopelvic pathology appreciated. <Electronically signed by Rishi Dawson > 05/20/21 [id number]
[2021-05-20 14:00] VITALS: BP 130/72
== END 2021-05-20 14:15 | disposition home or self-care (01) ==
LOC: M ED 10:55
DX: R10.9 Unspecified abdominal pain (principal); Z87.442 Personal history of urinary calculi; F41.9 Anxiety disorder, unspecified; F31.89 Other bipolar disorder; F12.10 Cannabis abuse, uncomplicated; Z88.0 Allergy status to penicillin
CPT/HCPCS: 74176; 80048; 80076; 81001; 83690; 84703; 85025; 96361; 96374; 96375; 99284; J1885; J2405

== ENCOUNTER → 2021-07-12 | Outpatient (REF) | payer OTHER ==
[2021-07-12 14:06] LABS: APPEARANCE, URINE CLEAR (CLEAR); BACTERIA, URINE AUTO 1+ (NEGATIVE); BILIRUBIN, URINE AUTO NEGATIVE (NEGATIVE); BLOOD, URINE BLOOD NEGATIVE (NEGATIVE); COLOR, URINE YELLOW (YELLOW); GLUCOSE, URINE (UA) AUTO NEGATIVE (NEGATIVE); KETONE, URINE AUTO NEGATIVE (NEGATIVE); LEUKOCYTE ESTERASE, URINE AUTO NEGATIVE (NEGATIVE); MUCUS, URINE SMALL (NEGATIVE); NITRITE, URINE AUTO NEGATIVE (NEGATIVE); PROTEIN, URINE AUTO NEGATIVE (NEGATIVE); RBC, URINE AUTO 1 /HPF (0-3); SQUAMOUS EPITHELIAL CELL UR AU 1 /HPF (0-6); UROBILINOGEN, URINE AUTO 0.2 mg/dL (0.0-2.0); WBC, URINE AUTO 1 /HPF (0-3)
== END ==
LOC: M SMT 13:21
PROVIDERS: ATTEND Physician Assistant
DX: R10.9 Unspecified abdominal pain (principal)

== ENCOUNTER 2023-11-27 01:42 | Emergency (ER) | payer OTHER ==
[~2023-11-27] VITALS: Ht 152.4 cm; Wt 74.7 kg
[~2023-11-27 01:42] MED LIST changes: -OXYB5TAB10 PO; +OXYB5TAB14 PO; +RISP-105 PO; -RISP-8 PO
[2023-11-27] MEDS ORDERED: ISOVUE-370 76% 100ML VIAL As Ordered ONE (02:31)
[2023-11-27] MEDS: CYCLOBENZAPRINE 10MG TABLET PO ONE (02:57)
[2023-11-27] MEDS: NS 1,000 ML IV ONE (02:57)
[2023-11-27] MEDS: KETOROLAC 30 MG/ML 1ML VIAL IV ONE (02:57)
[2023-11-27 03:07] LABS: BASO # 0.1 10^3/uL (0.0-0.2); BASO % 0.5 % (0.0-1.0); EOS # 0.2 10^3/uL (0.0-0.5); EOS % 1.3 % (0.0-3.0); HEMATOCRIT 42.4 % (36.0-47.0); HEMOGLOBIN 14.5 g/dl (12.0-15.5); LYMPH # 2.7 10^3/uL (1.5-5.0); LYMPH % 23.1 % (24.0-44.0); MEAN CORPUSCULAR HEMOGLOBIN 32.1 pg (27.0-33.0); MEAN CORPUSCULAR HGB CONC 34.2 g/dl (32.0-36.5); MEAN CORPUSCULAR VOLUME 93.8 fl (80.0-96.0); MONO # 0.8 10^3/uL (0.0-0.8); NEUTROPHILS % 67.7 % (36.0-66.0); PLATELET COUNT, AUTOMATED 209 10^3/uL (150-450); RED BLOOD COUNT 4.52 10^6/uL (4.00-5.40); WHITE BLOOD COUNT 11.8 10^3/uL (4.0-10.0)
[2023-11-27 03:20] LABS: INR 0.99; PARTIAL THROMBOPLASTIN TIME 25.6 SECONDS (24.8-34.2); PROTHROMBIN TIME 12.8 SECONDS (12.5-14.5)
[2023-11-27 03:26] LABS: CK-MB VALUE MASS < 1.0 NG/ML (<3.6)
[2023-11-27 03:27] LABS: HCG, SERUM QUALITATIVE NEGATIVE (NEGATIVE)
[2023-11-27 03:28] LABS: CPK CREATINE PHOSPHOKINASE 62 U/L (34-145); MB/CK RELATIVE INDEX 1.61 (< OR =4)
[2023-11-27 03:29] LABS: ALBUMIN 3.4 G/DL (3.2-5.2); ALKALINE PHOSPHATASE 73 U/L (46-116); ALT/SGPT 15 U/L (7.0-40); AST/SGOT < 8 U/L (<34); BILIRUBIN,DIRECT 0.1 MG/DL (<0.4); BILIRUBIN,TOTAL 0.5 MG/DL (0.3-1.2); BLOOD UREA NITROGEN 11 MG/DL (9-23); CALCIUM LEVEL 8.4 MG/DL (8.5-10.1); CARBON DIOXIDE LEVEL 28 MMOL/L (20-31); CHLORIDE LEVEL 112 MMOL/L (98-107); CREATININE FOR GFR 0.58 MG/DL (0.55-1.30); GLOMERULAR FILTRATION RATE > 60.0 (>60); GLUCOSE, FASTING 97 MG/DL (60-100); POTASSIUM SERUM 3.9 MMOL/L (3.5-5.1); SODIUM LEVEL 143 MMOL/L (136-145); TOTAL PROTEIN 5.9 G/DL (5.7-8.2)
[2023-11-27 03:30] LABS: FREE T4 1.27 NG/DL (0.89-1.76); THYROID STIMULATING HORMONE 4.862 uIU/ML (0.55-4.78)
[2023-11-27 03:35] LABS: ERYTHROCYTE SEDIMENTATION RATE < 1 mm/hr (0-20)
[2023-11-27] MEDS ORDERED: CYCL-707 PO (04:03)
[2023-11-27] MEDS ORDERED: KETO10TAB PO (04:03)
[2023-11-27 04:22] VITALS: BP 117/81; TEMP 98.2; O2SAT 99
== END 2023-11-27 04:24 | disposition home or self-care (01) ==
LOC: M ED 01:42
DX: M54.2 Cervicalgia (principal); F12.10 Cannabis abuse, uncomplicated; F10.10 Alcohol abuse, uncomplicated; Z88.0 Allergy status to penicillin; Z79.899 Other long term (current) drug therapy
CPT/HCPCS: 70450; 70496; 70498; 71045; 80047; 80048; 80076; 82550; 82553; 84439; 84443; 84484; 84703; 85025; 85610; 85652; 85730; 93005; 93041; 94760; 96361; 96374; 99284; J1885; Q9967